=== PATIENT | female | born 1975 | race Caucasian/White ===

== ENCOUNTER 2018-06-16 17:48 | Inpatient (IN) ==
[2018-06-16] MEDS ORDERED: DEXTROSE 50% 25 GM/50 ML SYRINGE IV PRN (21:48)
[2018-06-16] MEDS ORDERED: ONDANSETRON 4 MG/2 ML VIAL IV PRN (21:48)
[2018-06-16] MEDS ORDERED: GLUCAGON 1 MG VIAL IM PRN (21:48)
[2018-06-16] MEDS ORDERED: NITROGLYCERIN SL 0.4 MG TABLET SL PRN (21:55)
[2018-06-16] MEDS ORDERED: ALBUTEROL/IPRATROPIUM 3 ML NEB RESP TX PRN (21:55)
[2018-06-16 22:55] LABS: Albumin 2.9 G/DL (3.4-5.0); Calcium 8.2 MG/DL (8.5-10.1); Osmolality,Calculated 258.2 MOS/KG (273-304); Potassium 3.9 MMOL/L (3.5-5.1); Risk Ratio 3.16; Thyroid Stimulating Hormone 7.12 uIU/ml (0.358-3.74); Total Protein 7.2 G/DL (6.4-8.3); VLDL CHOLESTEROL 22.4 MG/DL
[2018-06-17] MEDS: INSULIN LISPRO 100 UNIT/ML SUBCUT SCH ×4 (00:11→18:07)
[2018-06-17] MEDS: FUROSEMIDE 40 MG/4 ML VIAL IV SCH ×5 (02:10→22:26)
[2018-06-17 02:25] LABS: Basophils # 0.1 10*3/uL (0.0-0.2); Basophils % 0.6 % (0.0-0.8); Eosinophils # 0.1 10*3/uL (0.0-0.87); Eosinophils % 1.5 % (0.00-10.9); Hemoglobin 10.1 GM/DL (12.0-16.0); Immature Granulocytes % 0.6 %; Immature Granulocytes Absolute 0.05 #; Lymphocytes # 1.4 10*3/uL (1.4-4.0); Lymphocytes % 16.3 % (21.3-54.2); Mean Corpuscular Hemoglobin 24 PG (27-34); Mean Corpuscular Volume 81.1 FL (87-102); Mean Platelet Volume 12.5 FL (9.6-12.0); Monocytes # 0.7 10*3/uL (0.11-0.8); Neutrophils # 6.4 10*3/uL (1.4-7.4); Platelet Count 174 T/CUMM (130-400); Red Blood Count 4.29 MC/CUMM (3.8-5.5); Red Cell Distribution Width 18.5 % (9.3-17.3); White Blood Count 8.7 T/CUMM (4-12)
[2018-06-17] MEDS: LEVOTHYROXINE 100 MCG TABLET PO SCH (07:25)
[2018-06-17] MEDS: busPIRone 15 MG TABLET PO SCH ×3 (08:35→22:23)
[2018-06-17] MEDS: GABAPENTIN 300 MG CAPSULE PO SCH ×3 (08:36→22:23)
[2018-06-17] MEDS: ASPIRIN CHEW 81 MG TABLET PO SCH (08:37)
[2018-06-17] MEDS: SPIRONOLACTONE 25 MG TABLET PO SCH (08:37)
[2018-06-17] MEDS: ENOXAPARIN 40 MG/0.4 ML SYRINGE SUBCUT SCH (08:37)
[2018-06-17] MEDS ORDERED: LEVOTHYROXINE 100 MCG TABLET PO SCH (09:00)
[2018-06-17] MEDS ORDERED: QUEtiapine 100 MG TABLET PO SCH (09:00)
[2018-06-17 10:23] LABS: ABG Base Excess 4.8 MMOL/L (-2.5-2.5); ABG HCO3 27.9 MMOL/L (20-26); ABG Oxygen Saturation 47.3 % (95-100); ABG PCO2 53.6 MM HG (35-48); ABG PH 7.372 (7.35-7.45); ABG TCO2 28.8 MMOL/L (23-27)
[2018-06-17 10:25] LABS: ABG PO2 31.3 MM HG (80-95)
[2018-06-17] MEDS: ALBUTEROL 1.25 MG/3 ML NEB RESP TX SCH ×3 (11:03→20:46)
[2018-06-17] MEDS ORDERED: methylPREDNISolone SOD SUC 125 MG/2 ML VIAL IV ONE (11:27)
[2018-06-17] MEDS: LEVOFLOXACIN INJ 750 MG in PREMIX 1 EACH IV SCH (12:17)
[2018-06-17] MEDS ORDERED: ALBUMIN 25% 12.5 GM/50 ML VIAL IV ONE (13:55)
[2018-06-17] MEDS ORDERED: ALBUMIN 25% 12.5 GM in PREMIX 1 EACH IV ONE (14:09)
[2018-06-17] MEDS: traMADol 50 MG TABLET PO SCH ×2 (16:07→22:23)
[2018-06-17 20:17] LABS: Neutrophils,Peritoneal Fluid 6 %
[2018-06-17 20:22] LABS: RBC,Peritoneal Fluid 572 T/CUMM
[2018-06-17] MEDS ORDERED: methylPREDNISolone SOD SUC 125 MG/2 ML VIAL IV SCH (23:30)
[2018-06-18] MEDS: ALBUTEROL 1.25 MG/3 ML NEB RESP TX SCH ×6 (00:49→20:30)
[2018-06-18] MEDS: INSULIN LISPRO 100 UNIT/ML SUBCUT SCH ×4 (01:09→17:09)
[2018-06-18] MEDS: FUROSEMIDE 40 MG/4 ML VIAL IV SCH ×3 (04:43→21:29)
[2018-06-18 05:14] LABS: Hematocrit 33.1 VOL% (35.7-47.0); Immature Granulocytes % 0.6 %; Immature Granulocytes Absolute 0.03 #; Lymphocytes # 0.4 10*3/uL (1.4-4.0); Lymphocytes % 9.1 % (21.3-54.2); Mean Corpuscular HGB Conc 30.2 GM/DL (32-36); Mean Corpuscular Hemoglobin 24 PG (27-34); Mean Corpuscular Volume 79.6 FL (87-102); Mean Platelet Volume 12.4 FL (9.6-12.0); Monocytes # 0.2 10*3/uL (0.11-0.8); Monocytes % 3.7 % (1.7-12.7); Neutrophils # 4.2 10*3/uL (1.4-7.4); Neutrophils % 86.6 % (38.7-73.9); Platelet Count 137 T/CUMM (130-400); Red Blood Count 4.16 MC/CUMM (3.8-5.5); Red Cell Distribution Width 18.2 % (9.3-17.3); White Blood Count 4.8 T/CUMM (4-12)
[2018-06-18 05:41] LABS: Albumin 2.6 G/DL (3.4-5.0); Bilirubin,Total 1.7 MG/DL (0.2-1.0); Calcium 8.7 MG/DL (8.5-10.1); Osmolality,Calculated 273.2 MOS/KG (273-304); Potassium 4.6 MMOL/L (3.5-5.1); Total Protein 6.6 G/DL (6.4-8.3)
[2018-06-18 05:45] LABS: Platelet Estimate Decreased; Polychromasia Few
[2018-06-18] MEDS: LEVOTHYROXINE 100 MCG TABLET PO SCH (06:44)
[2018-06-18] MEDS: ASPIRIN CHEW 81 MG TABLET PO SCH (08:41)
[2018-06-18] MEDS: busPIRone 15 MG TABLET PO SCH ×3 (08:41→21:32)
[2018-06-18] MEDS: GABAPENTIN 300 MG CAPSULE PO SCH ×3 (08:41→21:31)
[2018-06-18] MEDS: ENOXAPARIN 40 MG/0.4 ML SYRINGE SUBCUT SCH (08:41)
[2018-06-18] MEDS: SPIRONOLACTONE 25 MG TABLET PO SCH (08:42)
[2018-06-18] MEDS: traMADol 50 MG TABLET PO SCH ×2 (08:43→21:31)
[2018-06-18] MEDS ORDERED: SKIN HEALING OINT (AQUAPHOR) 50 GM TUBE TOP PRN (10:01)
[2018-06-18] MEDS: predniSONE 20 MG TABLET PO SCH (10:08)
[2018-06-18] MEDS: LEVOFLOXACIN INJ 750 MG in PREMIX 1 EACH IV SCH (10:50)
[2018-06-18] MEDS ORDERED: CALCIUM CARBONATE CHEW 500 MG TABLET PO PRN (16:21)
[2018-06-18] MEDS: SILVER SULFADIAZINE 1% CREAM 25 GM TUBE TOP SCH (16:30)
[2018-06-18] MEDS: PANTOPRAZOLE 40 MG TABLET PO SCH (16:41)
[2018-06-18] MEDS ORDERED: LISINOPRIL 10 MG TABLET PO SCH (21:00)
[2018-06-18] MEDS: QUEtiapine 100 MG TABLET PO SCH (21:30)
[2018-06-19] MEDS: INSULIN LISPRO 100 UNIT/ML SUBCUT SCH ×4 (00:17→17:30)
[2018-06-19] MEDS: ALBUTEROL 1.25 MG/3 ML NEB RESP TX SCH ×7 (00:21→23:26)
[2018-06-19] MEDS: FUROSEMIDE 40 MG/4 ML VIAL IV SCH ×3 (05:18→20:26)
[2018-06-19 06:07] LABS: Calcium 8.7 MG/DL (8.5-10.1); Osmolality,Calculated 282.8 MOS/KG (273-304); Potassium 4.2 MMOL/L (3.5-5.1)
[2018-06-19] MEDS ORDERED: DEXTROSE 50% 25 GM/50 ML VIAL IV PRN (08:04)
[2018-06-19] MEDS ORDERED: GLUCAGON 1 MG VIAL IM PRN (08:04)
[2018-06-19] MEDS ORDERED: PROPOFOL 200 MG/20 ML VIAL IV ONE (08:51)
[2018-06-19] MEDS ORDERED: ETOMIDATE 40 MG/20 ML VIAL IV ONE (08:52)
[2018-06-19] MEDS ORDERED: INSULIN REGULAR 100 UNIT/ML ONE (09:41)
[2018-06-19] MEDS: ASPIRIN CHEW 81 MG TABLET PO SCH (09:58)
[2018-06-19] MEDS: SPIRONOLACTONE 25 MG TABLET PO SCH (09:58)
[2018-06-19] MEDS: LEVOTHYROXINE 100 MCG TABLET PO SCH (09:58)
[2018-06-19] MEDS: busPIRone 15 MG TABLET PO SCH ×3 (09:59→20:27)
[2018-06-19] MEDS: GABAPENTIN 300 MG CAPSULE PO SCH ×3 (09:59→20:34)
[2018-06-19] MEDS: ENOXAPARIN 40 MG/0.4 ML SYRINGE SUBCUT SCH (09:59)
[2018-06-19] MEDS: predniSONE 20 MG TABLET PO SCH (09:59)
[2018-06-19] MEDS: LEVOFLOXACIN 500 MG TABLET PO SCH (09:59)
[2018-06-19] MEDS: LISINOPRIL 5 MG TABLET PO SCH (10:00)
[2018-06-19] MEDS: SILVER SULFADIAZINE 1% CREAM 25 GM TUBE TOP SCH (10:00)
[2018-06-19] MEDS: PANTOPRAZOLE 40 MG TABLET PO SCH (10:00)
[2018-06-19] MEDS: traMADol 50 MG TABLET PO SCH ×2 (10:00→20:27)
[2018-06-19] MEDS: QUEtiapine 100 MG TABLET PO SCH (20:31)
[2018-06-20] MEDS: LISINOPRIL 5 MG TABLET PO SCH ×3 (00:35→20:24)
[2018-06-20] MEDS: INSULIN LISPRO 100 UNIT/ML SUBCUT SCH ×4 (01:00→17:49)
[2018-06-20] MEDS: ALBUTEROL 1.25 MG/3 ML NEB RESP TX SCH ×6 (03:45→23:21)
[2018-06-20 04:35] LABS: Albumin 2.9 G/DL (3.4-5.0); Bilirubin,Total 1.3 MG/DL (0.2-1.0); Calcium 8.4 MG/DL (8.5-10.1); Osmolality,Calculated 286.8 MOS/KG (273-304); Potassium 4.8 MMOL/L (3.5-5.1); Total Protein 6.2 G/DL (6.4-8.3)
[2018-06-20 04:40] LABS: Eosinophils % 0.2 % (0.00-10.9); Hematocrit 32.7 VOL% (35.7-47.0); Hemoglobin 9.6 GM/DL (12.0-16.0); Immature Granulocytes % 0.5 %; Immature Granulocytes Absolute 0.03 #; Lymphocytes # 0.9 10*3/uL (1.4-4.0); Lymphocytes % 13.4 % (21.3-54.2); Mean Corpuscular HGB Conc 29.4 GM/DL (32-36); Mean Corpuscular Hemoglobin 24 PG (27-34); Mean Corpuscular Volume 82.4 FL (87-102); Mean Platelet Volume 12.5 FL (9.6-12.0); Monocytes # 0.5 10*3/uL (0.11-0.8); Monocytes % 7.1 % (1.7-12.7); Neutrophils # 5.3 10*3/uL (1.4-7.4); Neutrophils % 78.8 % (38.7-73.9); Platelet Count 130 T/CUMM (130-400); Red Blood Count 3.97 MC/CUMM (3.8-5.5); Red Cell Distribution Width 18.6 % (9.3-17.3); White Blood Count 6.7 T/CUMM (4-12)
[2018-06-20] MEDS: LEVOTHYROXINE 100 MCG TABLET PO SCH (06:50)
[2018-06-20] MEDS ORDERED: INSULIN GLARGINE 100 UNIT/ML SUBCUT SCH (09:00)
[2018-06-20] MEDS: predniSONE 20 MG TABLET PO SCH (09:05)
[2018-06-20] MEDS: glyBURIDE 2.5 MG TABLET PO SCH (09:05)
[2018-06-20] MEDS: LEVOFLOXACIN 500 MG TABLET PO SCH (09:05)
[2018-06-20] MEDS: GABAPENTIN 300 MG CAPSULE PO SCH ×3 (09:05→20:24)
[2018-06-20] MEDS: traMADol 50 MG TABLET PO SCH ×2 (09:06→20:24)
[2018-06-20] MEDS: SPIRONOLACTONE 25 MG TABLET PO SCH (09:06)
[2018-06-20] MEDS: ASPIRIN CHEW 81 MG TABLET PO SCH (09:06)
[2018-06-20] MEDS: FUROSEMIDE 40 MG/4 ML VIAL IV SCH ×2 (09:07→20:25)
[2018-06-20] MEDS: ENOXAPARIN 40 MG/0.4 ML SYRINGE SUBCUT SCH (09:07)
[2018-06-20] MEDS: PANTOPRAZOLE 40 MG TABLET PO SCH (09:07)
[2018-06-20] MEDS: busPIRone 15 MG TABLET PO SCH ×3 (09:19→20:24)
[2018-06-20] MEDS: SILVER SULFADIAZINE 1% CREAM 25 GM TUBE TOP SCH (09:35)
[2018-06-20] MEDS ORDERED: oxyCODONE/ACETAMINOPHEN 5-325 MG TABLET PO ONE (17:37)
[2018-06-20] MEDS: QUEtiapine 100 MG TABLET PO SCH (20:23)
[2018-06-21] MEDS: INSULIN LISPRO 100 UNIT/ML SUBCUT SCH ×4 (00:05→17:54)
[2018-06-21 04:09] LABS: Basophils % 0.1 % (0.0-0.8); Eosinophils % 0.1 % (0.00-10.9); Hematocrit 32.5 VOL% (35.7-47.0); Hemoglobin 9.7 GM/DL (12.0-16.0); Immature Granulocytes % 0.5 %; Immature Granulocytes Absolute 0.04 #; Lymphocytes # 1.2 10*3/uL (1.4-4.0); Lymphocytes % 15.1 % (21.3-54.2); Mean Corpuscular HGB Conc 29.8 GM/DL (32-36); Mean Corpuscular Hemoglobin 24 PG (27-34); Mean Corpuscular Volume 81.5 FL (87-102); Mean Platelet Volume 12.8 FL (9.6-12.0); Monocytes # 0.7 10*3/uL (0.11-0.8); Monocytes % 8.9 % (1.7-12.7); Neutrophils # 6.1 10*3/uL (1.4-7.4); Neutrophils % 75.3 % (38.7-73.9); Platelet Count 143 T/CUMM (130-400); Red Blood Count 3.99 MC/CUMM (3.8-5.5); Red Cell Distribution Width 18.8 % (9.3-17.3); White Blood Count 8.1 T/CUMM (4-12)
[2018-06-21 04:18] LABS: Albumin 2.8 G/DL (3.4-5.0); Bilirubin,Total 0.9 MG/DL (0.2-1.0); Calcium 8.5 MG/DL (8.5-10.1); Osmolality,Calculated 278.8 MOS/KG (273-304); Potassium 4.6 MMOL/L (3.5-5.1); Total Protein 6.6 G/DL (6.4-8.3)
[2018-06-21] MEDS: ALBUTEROL 1.25 MG/3 ML NEB RESP TX SCH ×5 (04:45→20:04)
[2018-06-21] MEDS ORDERED: guaiFENesin 200 MG/10 ML UDCUP PO PRN (05:54)
[2018-06-21] MEDS: oxyCODONE/ACETAMINOPHEN 5-325 MG TABLET PO PRN ×2 (06:10→14:14)
[2018-06-21] MEDS: LEVOTHYROXINE 100 MCG TABLET PO SCH (06:10)
[2018-06-21] MEDS ORDERED: MAGNESIUM SULF RIDER 2 GM in PREMIX 1 EACH IV ONE ×2 (08:53→13:00)
[2018-06-21] MEDS: predniSONE 20 MG TABLET PO SCH (09:01)
[2018-06-21] MEDS: LEVOFLOXACIN 500 MG TABLET PO SCH (09:02)
[2018-06-21] MEDS: ASPIRIN CHEW 81 MG TABLET PO SCH (09:02)
[2018-06-21] MEDS: busPIRone 15 MG TABLET PO SCH ×3 (09:02→21:03)
[2018-06-21] MEDS: SPIRONOLACTONE 25 MG TABLET PO SCH (09:03)
[2018-06-21] MEDS: GABAPENTIN 300 MG CAPSULE PO SCH ×3 (09:03→21:04)
[2018-06-21] MEDS: PANTOPRAZOLE 40 MG TABLET PO SCH (09:03)
[2018-06-21] MEDS: LISINOPRIL 5 MG TABLET PO SCH ×2 (09:03→21:04)
[2018-06-21] MEDS: traMADol 50 MG TABLET PO SCH ×2 (09:03→21:03)
[2018-06-21] MEDS: SILVER SULFADIAZINE 1% CREAM 25 GM TUBE TOP SCH (09:04)
[2018-06-21] MEDS: ENOXAPARIN 40 MG/0.4 ML SYRINGE SUBCUT SCH (09:04)
[2018-06-21] MEDS: FUROSEMIDE 40 MG/4 ML VIAL IV SCH ×2 (09:05→21:01)
[2018-06-21] MEDS: glyBURIDE 2.5 MG TABLET PO SCH (09:05)
[2018-06-21] MEDS: INSULIN GLARGINE 100 UNIT/ML SUBCUT SCH (09:53)
[2018-06-21] MEDS: glyBURIDE 5 MG TABLET PO SCH (17:54)
[2018-06-21] MEDS: QUEtiapine 100 MG TABLET PO SCH (21:03)
[2018-06-22] MEDS: INSULIN LISPRO 100 UNIT/ML SUBCUT SCH ×4 (00:15→17:08)
[2018-06-22] MEDS: ALBUTEROL 1.25 MG/3 ML NEB RESP TX SCH ×7 (00:28→23:11)
[2018-06-22] MEDS: oxyCODONE/ACETAMINOPHEN 5-325 MG TABLET PO PRN (04:49)
[2018-06-22 05:01] LABS: Eosinophils # 0.1 10*3/uL (0.0-0.87); Eosinophils % 1.3 % (0.00-10.9); Hematocrit 33.8 VOL% (35.7-47.0); Hemoglobin 9.9 GM/DL (12.0-16.0); Immature Granulocytes % 0.3 %; Immature Granulocytes Absolute 0.02 #; Lymphocytes # 1.4 10*3/uL (1.4-4.0); Lymphocytes % 23.2 % (21.3-54.2); Mean Corpuscular HGB Conc 29.3 GM/DL (32-36); Mean Corpuscular Hemoglobin 24 PG (27-34); Mean Corpuscular Volume 81.6 FL (87-102); Mean Platelet Volume 12.3 FL (9.6-12.0); Monocytes # 0.6 10*3/uL (0.11-0.8); Monocytes % 10.1 % (1.7-12.7); Neutrophils # 4.1 10*3/uL (1.4-7.4); Neutrophils % 65.1 % (38.7-73.9); Platelet Count 130 T/CUMM (130-400); Red Blood Count 4.14 MC/CUMM (3.8-5.5); Red Cell Distribution Width 18.7 % (9.3-17.3); White Blood Count 6.2 T/CUMM (4-12)
[2018-06-22 05:06] LABS: Calcium 8.8 MG/DL (8.5-10.1); Osmolality,Calculated 276.4 MOS/KG (273-304); Potassium 4.3 MMOL/L (3.5-5.1)
[2018-06-22 05:09] LABS: Albumin 3.1 G/DL (3.4-5.0); Bilirubin,Total 1.3 MG/DL (0.2-1.0); Calcium 8.7 MG/DL (8.5-10.1); Osmolality,Calculated 277.4 MOS/KG (273-304); Potassium 4.2 MMOL/L (3.5-5.1); Total Protein 6.4 G/DL (6.4-8.3)
[2018-06-22] MEDS: LEVOTHYROXINE 100 MCG TABLET PO SCH (06:20)
[2018-06-22] MEDS: glyBURIDE 5 MG TABLET PO SCH ×2 (09:16→17:07)
[2018-06-22] MEDS: predniSONE 20 MG TABLET PO SCH (09:16)
[2018-06-22] MEDS: ASPIRIN CHEW 81 MG TABLET PO SCH (09:16)
[2018-06-22] MEDS: SPIRONOLACTONE 25 MG TABLET PO SCH (09:16)
[2018-06-22] MEDS: LISINOPRIL 5 MG TABLET PO SCH ×2 (09:16→22:11)
[2018-06-22] MEDS: PANTOPRAZOLE 40 MG TABLET PO SCH (09:16)
[2018-06-22] MEDS: GABAPENTIN 300 MG CAPSULE PO SCH ×3 (09:16→22:11)
[2018-06-22] MEDS: INSULIN GLARGINE 100 UNIT/ML SUBCUT SCH (09:17)
[2018-06-22] MEDS: traMADol 50 MG TABLET PO SCH ×2 (09:17→22:12)
[2018-06-22] MEDS: ENOXAPARIN 40 MG/0.4 ML SYRINGE SUBCUT SCH (09:17)
[2018-06-22] MEDS: FUROSEMIDE 40 MG/4 ML VIAL IV SCH (09:18)
[2018-06-22] MEDS: SILVER SULFADIAZINE 1% CREAM 25 GM TUBE TOP SCH (09:25)
[2018-06-22] MEDS: busPIRone 15 MG TABLET PO SCH ×3 (09:26→22:11)
[2018-06-22] MEDS ORDERED: ZINC OXIDE PASTE 113 GM TUBE TOP PRN (10:08)
[2018-06-22] MEDS ORDERED: POTASSIUM CHLORIDE RIDER 10 MEQ in PREMIX 1 EACH IV PRN (14:43)
[2018-06-22] MEDS ORDERED: MAGNESIUM SULF RIDER 2 GM in PREMIX 1 EACH IV PRN (14:43)
[2018-06-22] MEDS ORDERED: INSULIN GLARGINE 100 UNIT/ML SUBCUT SCH (15:53)
[2018-06-22] MEDS ORDERED: FUROSEMIDE 40 MG TABLET PO SCH (16:00)
[2018-06-22] MEDS: SULFAMETHOX/TRIMETHOPRIM 800-160 MG TABLET PO SCH (22:11)
[2018-06-22] MEDS: QUEtiapine 100 MG TABLET PO SCH (22:12)
[2018-06-23] MEDS: INSULIN LISPRO 100 UNIT/ML SUBCUT SCH ×4 (01:43→18:01)
[2018-06-23] MEDS: ALBUTEROL 1.25 MG/3 ML NEB RESP TX SCH ×5 (03:01→19:56)
[2018-06-23 05:03] LABS: Basophils % 0.1 % (0.0-0.8); Eosinophils # 0.1 10*3/uL (0.0-0.87); Eosinophils % 0.9 % (0.00-10.9); Hematocrit 31.5 VOL% (35.7-47.0); Hemoglobin 9.4 GM/DL (12.0-16.0); Immature Granulocytes % 0.4 %; Immature Granulocytes Absolute 0.03 #; Lymphocytes # 1.4 10*3/uL (1.4-4.0); Lymphocytes % 19.9 % (21.3-54.2); Mean Corpuscular HGB Conc 29.8 GM/DL (32-36); Mean Corpuscular Hemoglobin 24 PG (27-34); Mean Corpuscular Volume 80.4 FL (87-102); Mean Platelet Volume 12.5 FL (9.6-12.0); Monocytes # 0.6 10*3/uL (0.11-0.8); Monocytes % 8.4 % (1.7-12.7); Neutrophils # 4.8 10*3/uL (1.4-7.4); Neutrophils % 70.3 % (38.7-73.9); Platelet Count 132 T/CUMM (130-400); Red Blood Count 3.92 MC/CUMM (3.8-5.5); Red Cell Distribution Width 18.9 % (9.3-17.3); White Blood Count 6.8 T/CUMM (4-12)
[2018-06-23 05:18] LABS: Calcium 8.9 MG/DL (8.5-10.1); Osmolality,Calculated 280.5 MOS/KG (273-304); Potassium 4.2 MMOL/L (3.5-5.1)
[2018-06-23] MEDS: LEVOTHYROXINE 100 MCG TABLET PO SCH (06:22)
[2018-06-23] MEDS ORDERED: VANCOMYCIN INJ 1,000 MG in SODIUM CHLORIDE 0.9% 250 ML IV SCH (07:00)
[2018-06-23] MEDS ORDERED: PIPERACILLIN/TAZOBACTAM 3,375 MG in SODIUM CHLORIDE 0.9% 100 ML IV SCH (07:00)
[2018-06-23] MEDS: NICOTINE 7 MG/24 HR PATCH TRANSDERM SCH (08:40)
[2018-06-23] MEDS: traMADol 50 MG TABLET PO SCH ×2 (08:41→22:26)
[2018-06-23] MEDS: SULFAMETHOX/TRIMETHOPRIM 800-160 MG TABLET PO SCH (08:41)
[2018-06-23] MEDS: ASPIRIN CHEW 81 MG TABLET PO SCH (08:41)
[2018-06-23] MEDS: GABAPENTIN 300 MG CAPSULE PO SCH ×3 (08:42→22:25)
[2018-06-23] MEDS: predniSONE 10 MG TABLET PO SCH (08:42)
[2018-06-23] MEDS: PANTOPRAZOLE 40 MG TABLET PO SCH (08:42)
[2018-06-23] MEDS: SILVER SULFADIAZINE 1% CREAM 25 GM TUBE TOP SCH (08:43)
[2018-06-23] MEDS ORDERED: SODIUM CHLORIDE 0.45% 1,000 ML IV SCH (09:00)
[2018-06-23] MEDS ORDERED: diphenhydrAMINE CAP 25 MG CAPSULE PO ONE (11:00)
[2018-06-23] MEDS ORDERED: DIAZEPAM 5 MG TABLET PO ONE (11:00)
[2018-06-23] MEDS: glyBURIDE 5 MG TABLET PO SCH ×2 (11:08→17:28)
[2018-06-23] MEDS: CLINDAMYCIN INJ 900 MG in PREMIX 1 EACH IV SCH ×2 (11:08→17:29)
[2018-06-23] MEDS: ENOXAPARIN 40 MG/0.4 ML SYRINGE SUBCUT SCH (11:12)
[2018-06-23] MEDS: busPIRone 15 MG TABLET PO SCH ×3 (11:14→22:24)
[2018-06-23] MEDS ORDERED: VERAPAMIL 5 MG/2 ML VIAL ONE (12:06)
[2018-06-23] MEDS ORDERED: LIDOCAINE 1% 20 ML VIAL ONE (12:06)
[2018-06-23] MEDS ORDERED: NITROGLYCERIN DRIP 0 MG/0 ML BOTTLE IV ONE (12:06)
[2018-06-23] MEDS ORDERED: HYDROmorphone 2 MG/1 ML VIAL ONE ×2 (12:56→13:17)
[2018-06-23] MEDS ORDERED: MIDAZOLAM 2 MG/2 ML VIAL ONE ×2 (12:56→13:17)
[2018-06-23] MEDS ORDERED: SODIUM CHLORIDE 0.9% 500 ML IV ONE (15:59)
[2018-06-23] MEDS ORDERED: INSULIN GLARGINE 100 UNIT/ML SUBCUT SCH (21:00)
[2018-06-23] MEDS: guaiFENesin/DM ER 600-30 MG TABLET PO SCH (22:24)
[2018-06-23] MEDS: QUEtiapine 100 MG TABLET PO SCH (22:25)
[2018-06-24] MEDS: INSULIN LISPRO 100 UNIT/ML SUBCUT SCH ×4 (00:36→18:57)
[2018-06-24] MEDS: ALBUTEROL 1.25 MG/3 ML NEB RESP TX SCH ×7 (00:42→23:43)
[2018-06-24] MEDS: CLINDAMYCIN INJ 900 MG in PREMIX 1 EACH IV SCH ×3 (01:41→16:36)
[2018-06-24 05:24] LABS: Basophils % 0.3 % (0.0-0.8); Eosinophils # 0.1 10*3/uL (0.0-0.87); Hematocrit 31.6 VOL% (35.7-47.0); Hemoglobin 9.3 GM/DL (12.0-16.0); Immature Granulocytes % 0.4 %; Immature Granulocytes Absolute 0.03 #; Lymphocytes # 1.4 10*3/uL (1.4-4.0); Lymphocytes % 17.9 % (21.3-54.2); Mean Corpuscular HGB Conc 29.4 GM/DL (32-36); Mean Corpuscular Hemoglobin 24 PG (27-34); Mean Corpuscular Volume 81.7 FL (87-102); Mean Platelet Volume 13.1 FL (9.6-12.0); Monocytes # 0.6 10*3/uL (0.11-0.8); Monocytes % 7.8 % (1.7-12.7); Neutrophils # 5.7 10*3/uL (1.4-7.4); Neutrophils % 72.6 % (38.7-73.9); Platelet Count 131 T/CUMM (130-400); Red Blood Count 3.87 MC/CUMM (3.8-5.5); Red Cell Distribution Width 19.1 % (9.3-17.3); White Blood Count 7.8 T/CUMM (4-12)
[2018-06-24 05:37] LABS: Calcium 8.6 MG/DL (8.5-10.1); Osmolality,Calculated 274.5 MOS/KG (273-304); Potassium 4.4 MMOL/L (3.5-5.1)
[2018-06-24] MEDS: LEVOTHYROXINE 100 MCG TABLET PO SCH (06:48)
[2018-06-24] MEDS ORDERED: SODIUM CHLORIDE 0.9% 1,000 ML IV SCH (08:00)
[2018-06-24] MEDS: GABAPENTIN 300 MG CAPSULE PO SCH ×3 (09:11→21:50)
[2018-06-24] MEDS: guaiFENesin/DM ER 600-30 MG TABLET PO SCH ×2 (09:11→21:56)
[2018-06-24] MEDS: PANTOPRAZOLE 40 MG TABLET PO SCH (09:11)
[2018-06-24] MEDS: traMADol 50 MG TABLET PO SCH ×2 (09:12→21:50)
[2018-06-24] MEDS: glyBURIDE 5 MG TABLET PO SCH ×2 (09:13→16:31)
[2018-06-24] MEDS: NICOTINE 7 MG/24 HR PATCH TRANSDERM SCH (09:14)
[2018-06-24] MEDS: busPIRone 15 MG TABLET PO SCH ×3 (09:14→21:50)
[2018-06-24] MEDS: predniSONE 10 MG TABLET PO SCH (09:14)
[2018-06-24] MEDS: INSULIN GLARGINE 100 UNIT/ML SUBCUT SCH ×2 (09:16→21:57)
[2018-06-24] MEDS: ENOXAPARIN 40 MG/0.4 ML SYRINGE SUBCUT SCH (09:18)
[2018-06-24] MEDS: oxyCODONE/ACETAMINOPHEN 5-325 MG TABLET PO PRN (11:07)
[2018-06-24] MEDS: SILVER SULFADIAZINE 1% CREAM 25 GM TUBE TOP SCH (13:52)
[2018-06-24] MEDS: FUROSEMIDE 40 MG/4 ML VIAL IV SCH (16:36)
[2018-06-24] MEDS: QUEtiapine 100 MG TABLET PO SCH (21:50)
[2018-06-25] MEDS: CLINDAMYCIN INJ 900 MG in PREMIX 1 EACH IV SCH ×3 (01:25→16:48)
[2018-06-25] MEDS: ALBUTEROL 1.25 MG/3 ML NEB RESP TX SCH ×6 (03:56→23:55)
[2018-06-25 05:11] LABS: Basophils % 0.1 % (0.0-0.8); Eosinophils # 0.1 10*3/uL (0.0-0.87); Eosinophils % 0.9 % (0.00-10.9); Hematocrit 30.3 VOL% (35.7-47.0); Immature Granulocytes % 0.6 %; Immature Granulocytes Absolute 0.04 #; Lymphocytes # 1.4 10*3/uL (1.4-4.0); Lymphocytes % 20.4 % (21.3-54.2); Mean Corpuscular HGB Conc 29.7 GM/DL (32-36); Mean Corpuscular Hemoglobin 24 PG (27-34); Mean Corpuscular Volume 80.8 FL (87-102); Mean Platelet Volume 12.6 FL (9.6-12.0); Monocytes # 0.6 10*3/uL (0.11-0.8); Monocytes % 8.2 % (1.7-12.7); Neutrophils # 4.7 10*3/uL (1.4-7.4); Neutrophils % 69.8 % (38.7-73.9); Platelet Count 130 T/CUMM (130-400); Red Blood Count 3.75 MC/CUMM (3.8-5.5); White Blood Count 6.7 T/CUMM (4-12)
[2018-06-25 05:41] LABS: Calcium 8.5 MG/DL (8.5-10.1); Osmolality,Calculated 269.5 MOS/KG (273-304); Potassium 4.1 MMOL/L (3.5-5.1)
[2018-06-25 05:42] LABS: Calcium 8.5 MG/DL (8.5-10.1); Osmolality,Calculated 269.5 MOS/KG (273-304); Potassium 4.2 MMOL/L (3.5-5.1)
[2018-06-25] MEDS: LEVOTHYROXINE 100 MCG TABLET PO SCH (06:22)
[2018-06-25] MEDS: INSULIN LISPRO 100 UNIT/ML SUBCUT SCH ×4 (06:32→17:32)
[2018-06-25] MEDS: glyBURIDE 5 MG TABLET PO SCH ×2 (09:25→16:43)
[2018-06-25] MEDS: predniSONE 10 MG TABLET PO SCH (09:25)
[2018-06-25] MEDS: guaiFENesin/DM ER 600-30 MG TABLET PO SCH ×2 (09:25→21:38)
[2018-06-25] MEDS: INSULIN GLARGINE 100 UNIT/ML SUBCUT SCH ×2 (09:25→21:39)
[2018-06-25] MEDS: ENOXAPARIN 40 MG/0.4 ML SYRINGE SUBCUT SCH (09:25)
[2018-06-25] MEDS: PANTOPRAZOLE 40 MG TABLET PO SCH (09:25)
[2018-06-25] MEDS: GABAPENTIN 300 MG CAPSULE PO SCH ×3 (09:26→21:39)
[2018-06-25] MEDS: traMADol 50 MG TABLET PO SCH ×2 (09:26→21:39)
[2018-06-25] MEDS: NICOTINE 7 MG/24 HR PATCH TRANSDERM SCH (09:26)
[2018-06-25] MEDS: busPIRone 15 MG TABLET PO SCH ×3 (09:27→21:38)
[2018-06-25] MEDS: SILVER SULFADIAZINE 1% CREAM 25 GM TUBE TOP SCH (09:27)
[2018-06-25] MEDS: FUROSEMIDE 40 MG/4 ML VIAL IV SCH ×2 (09:27→16:43)
[2018-06-25] MEDS: QUEtiapine 100 MG TABLET PO SCH (21:39)
[2018-06-26] MEDS: CLINDAMYCIN INJ 900 MG in PREMIX 1 EACH IV SCH ×3 (02:25→16:59)
[2018-06-26] MEDS: ALBUTEROL 1.25 MG/3 ML NEB RESP TX SCH ×5 (03:30→20:33)
[2018-06-26 05:24] LABS: Basophils % 0.1 % (0.0-0.8); Eosinophils # 0.1 10*3/uL (0.0-0.87); Eosinophils % 1.1 % (0.00-10.9); Immature Granulocytes % 0.7 %; Immature Granulocytes Absolute 0.05 #; Lymphocytes # 1.4 10*3/uL (1.4-4.0); Lymphocytes % 19.4 % (21.3-54.2); Mean Corpuscular Hemoglobin 24 PG (27-34); Mean Corpuscular Volume 79.8 FL (87-102); Mean Platelet Volume 12.7 FL (9.6-12.0); Monocytes # 0.7 10*3/uL (0.11-0.8); Monocytes % 10.3 % (1.7-12.7); Neutrophils # 4.9 10*3/uL (1.4-7.4); Neutrophils % 68.4 % (38.7-73.9); Platelet Count 123 T/CUMM (130-400); Red Blood Count 3.76 MC/CUMM (3.8-5.5); White Blood Count 7.1 T/CUMM (4-12)
[2018-06-26 05:42] LABS: Osmolality,Calculated 269.5 MOS/KG (273-304); Potassium 3.8 MMOL/L (3.5-5.1)
[2018-06-26] MEDS: INSULIN LISPRO 100 UNIT/ML SUBCUT SCH ×4 (09:03→18:25)
[2018-06-26] MEDS: glyBURIDE 5 MG TABLET PO SCH ×2 (09:04→16:59)
[2018-06-26] MEDS: LEVOTHYROXINE 100 MCG TABLET PO SCH (09:04)
[2018-06-26] MEDS: busPIRone 15 MG TABLET PO SCH ×3 (09:04→22:08)
[2018-06-26] MEDS: traMADol 50 MG TABLET PO SCH ×2 (09:05→21:06)
[2018-06-26] MEDS: PANTOPRAZOLE 40 MG TABLET PO SCH (09:05)
[2018-06-26] MEDS: predniSONE 10 MG TABLET PO SCH (09:05)
[2018-06-26] MEDS: guaiFENesin/DM ER 600-30 MG TABLET PO SCH ×2 (09:05→22:08)
[2018-06-26] MEDS: ENOXAPARIN 40 MG/0.4 ML SYRINGE SUBCUT SCH (09:06)
[2018-06-26] MEDS: NICOTINE 7 MG/24 HR PATCH TRANSDERM SCH (09:06)
[2018-06-26] MEDS: FUROSEMIDE 40 MG/4 ML VIAL IV SCH (09:07)
[2018-06-26] MEDS: SILVER SULFADIAZINE 1% CREAM 25 GM TUBE TOP SCH (09:08)
[2018-06-26] MEDS: INSULIN GLARGINE 100 UNIT/ML SUBCUT SCH ×2 (09:08→21:10)
[2018-06-26] MEDS: GABAPENTIN 300 MG CAPSULE PO SCH ×3 (09:17→21:06)
[2018-06-26] MEDS: FUROSEMIDE 80 MG TABLET PO SCH (16:59)
[2018-06-26] MEDS: SPIRONOLACTONE 25 MG TABLET PO SCH ×2 (16:59→21:06)
[2018-06-26] MEDS: QUEtiapine 100 MG TABLET PO SCH (21:06)
[2018-06-26] MEDS: oxyCODONE/ACETAMINOPHEN 5-325 MG TABLET PO PRN (23:45)
[2018-06-27] MEDS: INSULIN LISPRO 100 UNIT/ML SUBCUT SCH ×5 (00:17→23:19)
[2018-06-27] MEDS: ALBUTEROL 1.25 MG/3 ML NEB RESP TX SCH ×7 (01:03→23:54)
[2018-06-27] MEDS: CLINDAMYCIN INJ 900 MG in PREMIX 1 EACH IV SCH ×3 (02:29→17:09)
[2018-06-27 04:56] LABS: Basophils % 0.3 % (0.0-0.8); Eosinophils # 0.1 10*3/uL (0.0-0.87); Eosinophils % 0.9 % (0.00-10.9); Hematocrit 30.1 VOL% (35.7-47.0); Hemoglobin 8.8 GM/DL (12.0-16.0); Immature Granulocytes % 0.7 %; Immature Granulocytes Absolute 0.04 #; Lymphocytes # 1.1 10*3/uL (1.4-4.0); Lymphocytes % 19.5 % (21.3-54.2); Mean Corpuscular HGB Conc 29.2 GM/DL (32-36); Mean Corpuscular Hemoglobin 24 PG (27-34); Mean Corpuscular Volume 80.7 FL (87-102); Mean Platelet Volume 12.7 FL (9.6-12.0); Monocytes # 0.5 10*3/uL (0.11-0.8); Monocytes % 9.1 % (1.7-12.7); Neutrophils # 4.1 10*3/uL (1.4-7.4); Neutrophils % 69.5 % (38.7-73.9); Platelet Count 125 T/CUMM (130-400); Red Blood Count 3.73 MC/CUMM (3.8-5.5); Red Cell Distribution Width 19.5 % (9.3-17.3); White Blood Count 5.9 T/CUMM (4-12)
[2018-06-27 05:18] LABS: Calcium 8.3 MG/DL (8.5-10.1); Osmolality,Calculated 270.4 MOS/KG (273-304); Potassium 4.1 MMOL/L (3.5-5.1)
[2018-06-27] MEDS ORDERED: MAGNESIUM CITRATE 300 ML BOTTLE PO PRN (08:04)
[2018-06-27] MEDS: LEVOTHYROXINE 100 MCG TABLET PO SCH (09:11)
[2018-06-27] MEDS: glyBURIDE 5 MG TABLET PO SCH ×2 (09:14→17:09)
[2018-06-27] MEDS: predniSONE 10 MG TABLET PO SCH (09:14)
[2018-06-27] MEDS: busPIRone 15 MG TABLET PO SCH ×3 (09:14→20:07)
[2018-06-27] MEDS: FUROSEMIDE 80 MG TABLET PO SCH ×2 (09:14→15:41)
[2018-06-27] MEDS: SPIRONOLACTONE 25 MG TABLET PO SCH ×4 (09:14→20:07)
[2018-06-27] MEDS: PANTOPRAZOLE 40 MG TABLET PO SCH (09:15)
[2018-06-27] MEDS: traMADol 50 MG TABLET PO SCH ×2 (09:15→20:08)
[2018-06-27] MEDS: GABAPENTIN 300 MG CAPSULE PO SCH ×3 (09:15→20:08)
[2018-06-27] MEDS: guaiFENesin/DM ER 600-30 MG TABLET PO SCH ×2 (09:15→20:08)
[2018-06-27] MEDS: NICOTINE 7 MG/24 HR PATCH TRANSDERM SCH (09:16)
[2018-06-27] MEDS: SILVER SULFADIAZINE 1% CREAM 25 GM TUBE TOP SCH (09:16)
[2018-06-27] MEDS: ENOXAPARIN 40 MG/0.4 ML SYRINGE SUBCUT SCH (09:17)
[2018-06-27] MEDS: INSULIN GLARGINE 100 UNIT/ML SUBCUT SCH ×2 (09:17→20:07)
[2018-06-27] MEDS: POLYETHYLENE GLYCOL POWDER 17 GM PACK PO SCH (09:31)
[2018-06-27] MEDS: QUEtiapine 100 MG TABLET PO SCH (20:08)
[2018-06-28] MEDS: oxyCODONE/ACETAMINOPHEN 5-325 MG TABLET PO PRN ×2 (01:23→16:11)
[2018-06-28] MEDS: CLINDAMYCIN INJ 900 MG in PREMIX 1 EACH IV SCH ×3 (02:29→16:07)
[2018-06-28] MEDS: ALBUTEROL 1.25 MG/3 ML NEB RESP TX SCH ×5 (03:01→19:51)
[2018-06-28 04:40] LABS: Basophils % 0.3 % (0.0-0.8); Eosinophils % 0.7 % (0.00-10.9); Hematocrit 30.3 VOL% (35.7-47.0); Hemoglobin 8.9 GM/DL (12.0-16.0); Immature Granulocytes % 0.8 %; Immature Granulocytes Absolute 0.05 #; Lymphocytes # 1.1 10*3/uL (1.4-4.0); Lymphocytes % 17.3 % (21.3-54.2); Mean Corpuscular HGB Conc 29.4 GM/DL (32-36); Mean Corpuscular Hemoglobin 24 PG (27-34); Mean Corpuscular Volume 82.1 FL (87-102); Mean Platelet Volume 12.7 FL (9.6-12.0); Monocytes # 0.5 10*3/uL (0.11-0.8); Monocytes % 8.8 % (1.7-12.7); Neutrophils # 4.4 10*3/uL (1.4-7.4); Neutrophils % 72.1 % (38.7-73.9); Platelet Count 120 T/CUMM (130-400); Red Blood Count 3.69 MC/CUMM (3.8-5.5); Red Cell Distribution Width 19.5 % (9.3-17.3); White Blood Count 6.1 T/CUMM (4-12)
[2018-06-28 04:57] LABS: Calcium 8.2 MG/DL (8.5-10.1); Osmolality,Calculated 273.2 MOS/KG (273-304); Potassium 3.5 MMOL/L (3.5-5.1)
[2018-06-28] MEDS: LEVOTHYROXINE 100 MCG TABLET PO SCH (06:25)
[2018-06-28] MEDS: INSULIN LISPRO 100 UNIT/ML SUBCUT SCH ×4 (06:25→23:51)
[2018-06-28 06:53] LABS: Elliptocytes Few; Hypochromasia 2+; Microcytosis 1+; Platelet Estimate Adequate; Polychromasia Slight
[2018-06-28] MEDS: SILVER SULFADIAZINE 1% CREAM 25 GM TUBE TOP SCH (09:13)
[2018-06-28] MEDS: NICOTINE 7 MG/24 HR PATCH TRANSDERM SCH (09:14)
[2018-06-28] MEDS: INSULIN GLARGINE 100 UNIT/ML SUBCUT SCH ×2 (09:15→21:05)
[2018-06-28] MEDS: predniSONE 10 MG TABLET PO SCH (09:16)
[2018-06-28] MEDS: ENOXAPARIN 40 MG/0.4 ML SYRINGE SUBCUT SCH (09:16)
[2018-06-28] MEDS: guaiFENesin/DM ER 600-30 MG TABLET PO SCH ×2 (09:16→21:05)
[2018-06-28] MEDS: PANTOPRAZOLE 40 MG TABLET PO SCH (09:17)
[2018-06-28] MEDS: GABAPENTIN 300 MG CAPSULE PO SCH ×3 (09:17→21:05)
[2018-06-28] MEDS: glyBURIDE 5 MG TABLET PO SCH ×2 (09:17→16:08)
[2018-06-28] MEDS: busPIRone 15 MG TABLET PO SCH ×3 (09:17→21:05)
[2018-06-28] MEDS: FUROSEMIDE 80 MG TABLET PO SCH ×2 (09:17→15:19)
[2018-06-28] MEDS: SPIRONOLACTONE 25 MG TABLET PO SCH ×4 (09:17→21:05)
[2018-06-28] MEDS: traMADol 50 MG TABLET PO SCH ×2 (09:17→21:05)
[2018-06-28] MEDS: POLYETHYLENE GLYCOL POWDER 17 GM PACK PO SCH (09:18)
[2018-06-28] MEDS: QUEtiapine 100 MG TABLET PO SCH (21:05)
[2018-06-29] MEDS: ALBUTEROL 1.25 MG/3 ML NEB RESP TX SCH ×6 (00:45→19:08)
[2018-06-29] MEDS: CLINDAMYCIN INJ 900 MG in PREMIX 1 EACH IV SCH (03:50)
[2018-06-29 05:37] LABS: Basophils % 0.3 % (0.0-0.8); Eosinophils # 0.1 10*3/uL (0.0-0.87); Hematocrit 29.5 VOL% (35.7-47.0); Hemoglobin 8.6 GM/DL (12.0-16.0); Immature Granulocytes % 0.7 %; Immature Granulocytes Absolute 0.04 #; Lymphocytes % 17.3 % (21.3-54.2); Mean Corpuscular HGB Conc 29.2 GM/DL (32-36); Mean Corpuscular Hemoglobin 24 PG (27-34); Mean Corpuscular Volume 81.7 FL (87-102); Mean Platelet Volume 12.2 FL (9.6-12.0); Monocytes # 0.5 10*3/uL (0.11-0.8); Neutrophils # 4.3 10*3/uL (1.4-7.4); Neutrophils % 72.7 % (38.7-73.9); Platelet Count 111 T/CUMM (130-400); Red Blood Count 3.61 MC/CUMM (3.8-5.5); Red Cell Distribution Width 19.7 % (9.3-17.3); White Blood Count 5.9 T/CUMM (4-12)
[2018-06-29 05:52] LABS: Calcium 8.3 MG/DL (8.5-10.1); Osmolality,Calculated 274.4 MOS/KG (273-304); Potassium 3.8 MMOL/L (3.5-5.1)
[2018-06-29] MEDS: INSULIN LISPRO 100 UNIT/ML SUBCUT SCH ×3 (06:46→17:40)
[2018-06-29] MEDS: LEVOTHYROXINE 100 MCG TABLET PO SCH (06:46)
[2018-06-29] MEDS ORDERED: VANCOMYCIN INJ 1,000 MG in SODIUM CHLORIDE 0.9% 250 ML IV SCH (08:00)
[2018-06-29] MEDS: INSULIN GLARGINE 100 UNIT/ML SUBCUT SCH ×2 (09:41→22:40)
[2018-06-29] MEDS: PANTOPRAZOLE 40 MG TABLET PO SCH (09:42)
[2018-06-29] MEDS: busPIRone 15 MG TABLET PO SCH ×3 (09:42→22:08)
[2018-06-29] MEDS: SPIRONOLACTONE 25 MG TABLET PO SCH ×4 (09:42→22:08)
[2018-06-29] MEDS: predniSONE 10 MG TABLET PO SCH (09:42)
[2018-06-29] MEDS: ENOXAPARIN 40 MG/0.4 ML SYRINGE SUBCUT SCH (09:42)
[2018-06-29] MEDS: PIPERACILLIN/TAZOBACTAM 3,375 MG in SODIUM CHLORIDE 0.9% 100 ML IV SCH ×2 (09:43→17:39)
[2018-06-29] MEDS: FUROSEMIDE 80 MG TABLET PO SCH ×2 (09:43→15:20)
[2018-06-29] MEDS: traMADol 50 MG TABLET PO SCH ×2 (09:43→22:09)
[2018-06-29] MEDS: glyBURIDE 5 MG TABLET PO SCH ×2 (09:43→17:39)
[2018-06-29] MEDS: GABAPENTIN 300 MG CAPSULE PO SCH ×3 (09:43→22:08)
[2018-06-29] MEDS: guaiFENesin/DM ER 600-30 MG TABLET PO SCH ×2 (09:43→22:07)
[2018-06-29] MEDS ORDERED: MAGNESIUM SULF RIDER 4 GM in PREMIX 1 EACH IV PRN (10:41)
[2018-06-29] MEDS ORDERED: MAGNESIUM SULF RIDER 2 GM in PREMIX 1 EACH IV PRN (10:41)
[2018-06-29] MEDS: SULFAMETHOX/TRIMETHOPRIM 800-160 MG TABLET PO SCH ×2 (11:19→22:07)
[2018-06-29] MEDS: SILVER SULFADIAZINE 1% CREAM 25 GM TUBE TOP SCH (11:20)
[2018-06-29] MEDS: POLYETHYLENE GLYCOL POWDER 17 GM PACK PO SCH (12:01)
[2018-06-29] MEDS: NICOTINE 7 MG/24 HR PATCH TRANSDERM SCH (12:01)
[2018-06-29] MEDS: VANCOMYCIN INJ 1,750 MG in SODIUM CHLORIDE 0.9% 500 ML IV SCH ×2 (13:29→22:11)
[2018-06-29] MEDS: oxyCODONE/ACETAMINOPHEN 5-325 MG TABLET PO PRN (15:19)
[2018-06-29] MEDS: ROSUVASTATIN 20 MG TABLET PO SCH (22:07)
[2018-06-29] MEDS: QUEtiapine 100 MG TABLET PO SCH (22:08)
[2018-06-30] MEDS: ALBUTEROL 1.25 MG/3 ML NEB RESP TX SCH ×7 (00:10→23:25)
[2018-06-30] MEDS: PIPERACILLIN/TAZOBACTAM 3,375 MG in SODIUM CHLORIDE 0.9% 100 ML IV SCH ×2 (00:15→14:25)
[2018-06-30] MEDS: LEVOTHYROXINE 100 MCG TABLET PO SCH (05:40)
[2018-06-30 05:44] LABS: Calcium 8.3 MG/DL (8.5-10.1); Potassium 3.8 MMOL/L (3.5-5.1)
[2018-06-30 05:45] LABS: Calcium 8.4 MG/DL (8.5-10.1); Osmolality,Calculated 274.1 MOS/KG (273-304); Potassium 3.7 MMOL/L (3.5-5.1)
[2018-06-30 06:16] LABS: Basophils % 0.3 % (0.0-0.8); Eosinophils # 0.1 10*3/uL (0.0-0.87); Eosinophils % 1.2 % (0.00-10.9); Hematocrit 31.6 VOL% (35.7-47.0); Immature Granulocytes % 0.7 %; Immature Granulocytes Absolute 0.05 #; Lymphocytes # 1.2 10*3/uL (1.4-4.0); Lymphocytes % 15.9 % (21.3-54.2); Mean Corpuscular HGB Conc 29.1 GM/DL (32-36); Mean Corpuscular Hemoglobin 24 PG (27-34); Mean Corpuscular Volume 82.7 FL (87-102); Mean Platelet Volume 13.7 FL (9.6-12.0); Monocytes # 0.6 10*3/uL (0.11-0.8); Monocytes % 8.1 % (1.7-12.7); Neutrophils # 5.4 10*3/uL (1.4-7.4); Neutrophils % 73.8 % (38.7-73.9); Platelet Count 132 T/CUMM (130-400); Red Blood Count 3.82 MC/CUMM (3.8-5.5); Red Cell Distribution Width 19.8 % (9.3-17.3); White Blood Count 7.3 T/CUMM (4-12)
[2018-06-30 06:18] LABS: Hemoglobin 9.2 GM/DL (12.0-16.0)
[2018-06-30 06:19] LABS: Hypochromasia 1+; Ovalocytes Slight; Platelet Estimate Adequate
[2018-06-30 06:20] LABS: Microcytosis Slight
[2018-06-30] MEDS: INSULIN LISPRO 100 UNIT/ML SUBCUT SCH ×4 (06:35→18:40)
[2018-06-30] MEDS: INSULIN GLARGINE 100 UNIT/ML SUBCUT SCH ×2 (09:34→22:26)
[2018-06-30] MEDS: predniSONE 10 MG TABLET PO SCH (09:35)
[2018-06-30] MEDS: guaiFENesin/DM ER 600-30 MG TABLET PO SCH ×2 (09:35→22:28)
[2018-06-30] MEDS: FUROSEMIDE 80 MG TABLET PO SCH ×2 (09:35→17:32)
[2018-06-30] MEDS: SULFAMETHOX/TRIMETHOPRIM 800-160 MG TABLET PO SCH (09:35)
[2018-06-30] MEDS: PANTOPRAZOLE 40 MG TABLET PO SCH (09:35)
[2018-06-30] MEDS: glyBURIDE 5 MG TABLET PO SCH ×2 (09:35→17:32)
[2018-06-30] MEDS: traMADol 50 MG TABLET PO SCH ×2 (09:35→22:28)
[2018-06-30] MEDS: ENOXAPARIN 40 MG/0.4 ML SYRINGE SUBCUT SCH (09:35)
[2018-06-30] MEDS: SPIRONOLACTONE 25 MG TABLET PO SCH ×4 (09:36→22:28)
[2018-06-30] MEDS: GABAPENTIN 300 MG CAPSULE PO SCH ×3 (09:36→22:29)
[2018-06-30] MEDS: busPIRone 15 MG TABLET PO SCH ×3 (09:38→22:28)
[2018-06-30] MEDS: POLYETHYLENE GLYCOL POWDER 17 GM PACK PO SCH (11:44)
[2018-06-30] MEDS: SILVER SULFADIAZINE 1% CREAM 25 GM TUBE TOP SCH (11:44)
[2018-06-30] MEDS: NICOTINE 7 MG/24 HR PATCH TRANSDERM SCH (12:23)
[2018-06-30] MEDS: ASPIRIN EC 81 MG TABLET PO SCH (12:23)
[2018-06-30] MEDS: VANCOMYCIN INJ 1,750 MG in SODIUM CHLORIDE 0.9% 500 ML IV SCH (14:26)
[2018-06-30] MEDS: QUEtiapine 100 MG TABLET PO SCH (22:28)
[2018-06-30] MEDS: ROSUVASTATIN 20 MG TABLET PO SCH (22:28)
[2018-07-01] MEDS: INSULIN LISPRO 100 UNIT/ML SUBCUT SCH ×4 (00:35→19:12)
[2018-07-01] MEDS: ALBUTEROL 1.25 MG/3 ML NEB RESP TX SCH ×6 (03:04→23:21)
[2018-07-01 06:01] LABS: Basophils % 0.6 % (0.0-0.8); Eosinophils # 0.1 10*3/uL (0.0-0.87); Eosinophils % 0.9 % (0.00-10.9); Immature Granulocytes % 0.6 %; Immature Granulocytes Absolute 0.04 #; Lymphocytes # 1.2 10*3/uL (1.4-4.0); Lymphocytes % 18.4 % (21.3-54.2); Mean Corpuscular HGB Conc 28.5 GM/DL (32-36); Mean Corpuscular Hemoglobin 24 PG (27-34); Mean Corpuscular Volume 83.1 FL (87-102); Mean Platelet Volume 13.5 FL (9.6-12.0); Monocytes # 0.5 10*3/uL (0.11-0.8); Monocytes % 7.6 % (1.7-12.7); Neutrophils # 4.9 10*3/uL (1.4-7.4); Neutrophils % 71.9 % (38.7-73.9); Platelet Count 133 T/CUMM (130-400); Red Blood Count 3.67 MC/CUMM (3.8-5.5); Red Cell Distribution Width 19.9 % (9.3-17.3); White Blood Count 6.8 T/CUMM (4-12)
[2018-07-01 06:12] LABS: Calcium 8.5 MG/DL (8.5-10.1); Osmolality,Calculated 272.2 MOS/KG (273-304); Potassium 4.2 MMOL/L (3.5-5.1)
[2018-07-01 06:28] LABS: Hematocrit 30.3 VOL% (35.7-47.0); Hemoglobin 8.7 GM/DL (12.0-16.0)
[2018-07-01 06:30] LABS: Hypochromasia 1+; Microcytosis Slight; Ovalocytes Slight; Platelet Estimate Normal
[2018-07-01] MEDS: LEVOTHYROXINE 100 MCG TABLET PO SCH (06:34)
[2018-07-01] MEDS: PANTOPRAZOLE 40 MG TABLET PO SCH (09:26)
[2018-07-01] MEDS: FUROSEMIDE 80 MG TABLET PO SCH ×2 (09:27→15:11)
[2018-07-01] MEDS: traMADol 50 MG TABLET PO SCH ×2 (09:27→21:05)
[2018-07-01] MEDS: GABAPENTIN 300 MG CAPSULE PO SCH ×3 (09:27→21:00)
[2018-07-01] MEDS: glyBURIDE 5 MG TABLET PO SCH ×2 (09:27→16:12)
[2018-07-01] MEDS: guaiFENesin/DM ER 600-30 MG TABLET PO SCH ×2 (09:27→21:00)
[2018-07-01] MEDS: predniSONE 10 MG TABLET PO SCH (09:27)
[2018-07-01] MEDS: ASPIRIN EC 81 MG TABLET PO SCH (09:28)
[2018-07-01] MEDS: SPIRONOLACTONE 25 MG TABLET PO SCH ×4 (09:28→20:59)
[2018-07-01] MEDS: ENOXAPARIN 40 MG/0.4 ML SYRINGE SUBCUT SCH (09:28)
[2018-07-01] MEDS: POLYETHYLENE GLYCOL POWDER 17 GM PACK PO SCH (09:28)
[2018-07-01] MEDS: INSULIN GLARGINE 100 UNIT/ML SUBCUT SCH ×2 (09:30→21:00)
[2018-07-01] MEDS: NICOTINE 7 MG/24 HR PATCH TRANSDERM SCH (09:30)
[2018-07-01] MEDS: busPIRone 15 MG TABLET PO SCH ×3 (09:30→21:00)
[2018-07-01] MEDS: SILVER SULFADIAZINE 1% CREAM 25 GM TUBE TOP SCH (09:30)
[2018-07-01] MEDS: CHLORHEXIDINE 4% SOLN 118 ML BOTTLE TOP SCH ×2 (15:11→21:00)
[2018-07-01] MEDS: oxyCODONE/ACETAMINOPHEN 5-325 MG TABLET PO PRN (16:12)
[2018-07-01] MEDS: CHLORHEXIDINE 0.12% ORAL RINSE 60 ML BOTTLE SWISH/SPIT SCH (21:00)
[2018-07-01] MEDS: ROSUVASTATIN 20 MG TABLET PO SCH (21:00)
[2018-07-01] MEDS: QUEtiapine 100 MG TABLET PO SCH (21:05)
[2018-07-02] MEDS ORDERED: CEFUROXIME INJ 1,500 MG in SODIUM CHLORIDE 0.9% 100 ML IV ONE (00:01)
[2018-07-02] MEDS: INSULIN LISPRO 100 UNIT/ML SUBCUT SCH ×3 (01:16→11:11)
[2018-07-02] MEDS: ALBUTEROL 1.25 MG/3 ML NEB RESP TX SCH ×3 (03:20→11:11)
[2018-07-02 04:44] LABS: Basophils % 0.3 % (0.0-0.8); Eosinophils % 0.5 % (0.00-10.9); Hematocrit 29.1 VOL% (35.7-47.0); Hemoglobin 8.5 GM/DL (12.0-16.0); Immature Granulocytes % 0.8 %; Immature Granulocytes Absolute 0.05 #; Lymphocytes # 1.1 10*3/uL (1.4-4.0); Lymphocytes % 15.9 % (21.3-54.2); Mean Corpuscular HGB Conc 29.2 GM/DL (32-36); Mean Corpuscular Hemoglobin 24 PG (27-34); Mean Corpuscular Volume 81.7 FL (87-102); Mean Platelet Volume 12.2 FL (9.6-12.0); Monocytes # 0.5 10*3/uL (0.11-0.8); Monocytes % 6.9 % (1.7-12.7); Neutrophils % 75.6 % (38.7-73.9); Platelet Count 116 T/CUMM (130-400); Red Blood Count 3.56 MC/CUMM (3.8-5.5); Red Cell Distribution Width 19.7 % (9.3-17.3); White Blood Count 6.7 T/CUMM (4-12)
[2018-07-02] MEDS ORDERED: TISSUE ADHESIVE 1 EACH APPLICATOR TOP ONE (04:44)
[2018-07-02] MEDS ORDERED: VANCOMYCIN 1,000 MG VIAL ONE (04:45)
[2018-07-02] MEDS ORDERED: FAMOTIDINE 20 MG TABLET PO ONE (05:00)
[2018-07-02] MEDS ORDERED: DIAZEPAM 5 MG TABLET PO ONE (05:00)
[2018-07-02 05:01] LABS: Calcium 8.6 MG/DL (8.5-10.1); Osmolality,Calculated 278.2 MOS/KG (273-304)
[2018-07-02] MEDS ORDERED: VANCOMYCIN INJ 1,000 MG in SODIUM CHLORIDE 0.9% 250 ML IV ONE (06:00)
[2018-07-02] MEDS ORDERED: PIPERACILLIN/TAZOBACTAM 3,375 MG in SODIUM CHLORIDE 0.9% 100 ML IV ONE (06:00)
[2018-07-02] MEDS ORDERED: CALCIUM CHLORIDE 1,000 MG/10 ML SYRINGE IV ONE (07:33)
[2018-07-02] MEDS ORDERED: PHENYLEPHRINE DRIP 40 MG/250 ML PREMIX IV ONE (07:33)
[2018-07-02] MEDS ORDERED: ALBUMIN 5% 12.5 GM/250 ML VIAL IV ONE ×2 (07:33→10:55)
[2018-07-02] MEDS ORDERED: EPINEPHrine 1 MG/10 ML SYRINGE ONE (07:33)
[2018-07-02] MEDS ORDERED: SODIUM BICARBONATE 50 MEQ/50 ML SYRINGE IV ONE ×2 (07:33→11:44)
[2018-07-02] MEDS ORDERED: ATROPINE 1 MG/10 ML SYRINGE ONE (07:33)
[2018-07-02] MEDS ORDERED: ALBUTEROL 2.5 MG/3 ML NEB RESP TX ONE (08:43)
[2018-07-02 08:49] LABS: ABG Base Excess 2.6 MMOL/L (-2.5-2.5); ABG HCO3 26.7 MMOL/L (20-26); ABG PCO2 45.2 MM HG (35-48); ABG PH 7.396 (7.35-7.45); ABG TCO2 25.7 MMOL/L (23-27); Glucose Heart Surgery 183 MG/DL (74-106); Hematocrit Heart Surgery 26.9 PERCENT (37-47); Hemoglobin Heart Surgery 8.7 G/DL (12.0-16.0); Ionized Calcium Arterial 1.14 MMOL/L (1.21-1.46); PCO2 Patient Temp Arterial 45.2 MMHG; PH Patient Temp Arterial 7.396; Patient Temperature 37 CELCIUS; Potassium Heart/CVR 3.9 MMOL/L (3.5-5.1); Sodium Heart/CVR 134 MMOL/L (135-145)
[2018-07-02 09:13] LABS: Apearance,Urine CLEAR (Clear); Bilirubin,Urine Negative (Negative); Blood, Urine Small mg/dL (Negative); Glucose,Urine (UA) Negative (Negative); Ketones,Urine Negative (Negative); Nitrite,Urine Negative (Negative); Protein,Urine Negative; RBC,Urine 11 /HPF (0-4); Urine Color Yellow (Yellow); Urine Specific Gravity 1.011 (1.001-1.035)
[2018-07-02 09:45] LABS: Hematocrit Heart Surgery 19.4 PERCENT (37-47); PCO2 Patient Temp Venous 52.5 MM HG; PH Patient Temp Venous 7.35; PO2 Patient Temp Venous 57.6 MM HG; VBG Base Excess 3.1 MEQ/L (0-4); VBG HCO3 27.1 MEQ/L (24-28); VBG Oxygen Saturation 86.3 %; VBG PCO2 55.1 MMHG (41-51); VBG PH 7.336; VBG PO2 61.5 MMHG (17-40)
[2018-07-02] MEDS: SODIUM CHLORIDE 0.9% 1,000 ML IV SCH ×2 (09:47→11:35)
[2018-07-02 09:48] LABS: Hemoglobin Heart Surgery 6.2 G/DL (12.0-16.0)
[2018-07-02] MEDS: LEVOTHYROXINE 100 MCG TABLET PO SCH (09:48)
[2018-07-02] MEDS: glyBURIDE 5 MG TABLET PO SCH (09:48)
[2018-07-02] MEDS: ENOXAPARIN 40 MG/0.4 ML SYRINGE SUBCUT SCH (09:49)
[2018-07-02] MEDS: ASPIRIN EC 81 MG TABLET PO SCH (09:49)
[2018-07-02] MEDS: CHLORHEXIDINE 4% SOLN 118 ML BOTTLE TOP SCH (09:49)
[2018-07-02] MEDS: busPIRone 15 MG TABLET PO SCH (09:49)
[2018-07-02] MEDS: INSULIN GLARGINE 100 UNIT/ML SUBCUT SCH (09:49)
[2018-07-02] MEDS: SPIRONOLACTONE 25 MG TABLET PO SCH ×2 (09:49→12:00)
[2018-07-02] MEDS: FUROSEMIDE 80 MG TABLET PO SCH (09:49)
[2018-07-02] MEDS: SILVER SULFADIAZINE 1% CREAM 25 GM TUBE TOP SCH (09:50)
[2018-07-02] MEDS: guaiFENesin/DM ER 600-30 MG TABLET PO SCH (09:50)
[2018-07-02] MEDS: traMADol 50 MG TABLET PO SCH (09:50)
[2018-07-02] MEDS: NICOTINE 7 MG/24 HR PATCH TRANSDERM SCH (09:50)
[2018-07-02] MEDS: POLYETHYLENE GLYCOL POWDER 17 GM PACK PO SCH (09:50)
[2018-07-02] MEDS: predniSONE 10 MG TABLET PO SCH (09:50)
[2018-07-02] MEDS: CHLORHEXIDINE 0.12% ORAL RINSE 60 ML BOTTLE SWISH/SPIT SCH ×2 (09:50→21:33)
[2018-07-02] MEDS: GABAPENTIN 300 MG CAPSULE PO SCH (09:50)
[2018-07-02] MEDS: PANTOPRAZOLE 40 MG TABLET PO SCH (09:50)
[2018-07-02 10:17] LABS: PCO2 Patient Temp Venous 43.4 MM HG; PH Patient Temp Venous 7.393; PO2 Patient Temp Venous 43.2 MM HG; Potassium Heart/CVR 3.9 MMOL/L (3.5-5.1); VBG Base Excess 1.7 MEQ/L (0-4); VBG HCO3 25.8 MEQ/L (24-28); VBG Oxygen Saturation 78.4 %; VBG PCO2 47.8 MMHG (41-51); VBG PH 7.364; VBG PO2 49.5 MMHG (17-40)
[2018-07-02 10:19] LABS: Hemoglobin Heart Surgery 5.5 G/DL (12.0-16.0)
[2018-07-02 10:20] LABS: Hematocrit Heart Surgery 17.3 PERCENT (37-47)
[2018-07-02 10:48] LABS: PH Patient Temp Venous 7.396; PO2 Patient Temp Venous 36.3 MM HG; VBG Base Excess 1.4 MEQ/L (0-4); VBG HCO3 25.5 MEQ/L (24-28); VBG PCO2 50.9 MMHG (41-51); VBG PH 7.339; VBG PO2 47.7 MMHG (17-40)
[2018-07-02 10:50] LABS: Hematocrit Heart Surgery 17.6 PERCENT (37-47); Hemoglobin Heart Surgery 5.6 G/DL (12.0-16.0)
[2018-07-02] MEDS ORDERED: HEPARIN/NACL 0.9% 2 UNITS/ML 500 ML IV ONE (10:51)
[2018-07-02] MEDS ORDERED: PHENYLEPHRINE DRIP 20 MG/250 ML PREMIX IV ONE (10:51)
[2018-07-02] MEDS ORDERED: MIDAZOLAM 10 MG/2 ML VIAL ONE ×2 (10:52→13:32)
[2018-07-02] MEDS ORDERED: CALCIUM CHLORIDE 1,000 MG/10 ML VIAL IV ONE (10:52)
[2018-07-02] MEDS ORDERED: VECURONIUM 10 MG VIAL IV ONE (10:52)
[2018-07-02] MEDS ORDERED: ETOMIDATE 40 MG/20 ML VIAL IV ONE (10:52)
[2018-07-02 10:58] LABS: PCO2 Patient Temp Venous 41.8 MM HG; PH Patient Temp Venous 7.395; PO2 Patient Temp Venous 37.1 MM HG; Potassium Heart/CVR 3.8 MMOL/L (3.5-5.1); VBG Base Excess 1.2 MEQ/L (0-4); VBG HCO3 25.2 MEQ/L (24-28); VBG Oxygen Saturation 75.2 %; VBG PCO2 50.7 MMHG (41-51); VBG PH 7.338; VBG PO2 48.7 MMHG (17-40)
[2018-07-02 10:59] LABS: Hematocrit Heart Surgery 19.4 PERCENT (37-47); Hemoglobin Heart Surgery 6.2 G/DL (12.0-16.0)
[2018-07-02 11:14] LABS: Hematocrit Heart Surgery 20.5 PERCENT (37-47); Hemoglobin Heart Surgery 6.5 G/DL (12.0-16.0); PCO2 Patient Temp Venous 41.2 MM HG; PH Patient Temp Venous 7.401; PO2 Patient Temp Venous 35.3 MM HG; Potassium Heart/CVR 4.8 MMOL/L (3.5-5.1); VBG Oxygen Saturation 65.5 %; VBG PCO2 45.4 MMHG (41-51); VBG PH 7.372; VBG PO2 40.5 MMHG (17-40)
[2018-07-02] MEDS ORDERED: THROMBIN TOPICAL (RECOMBINANT) 5,000 UNIT VIAL TOP ONE (11:34)
[2018-07-02] MEDS ORDERED: MAGNESIUM SULFATE 10 GM/20 ML VIAL IV ONE (11:44)
[2018-07-02] MEDS ORDERED: DEXTROSE 5% KCL 20 MEQ 20 MEQ/1,000 ML BAG IV ONE (11:44)
[2018-07-02] MEDS ORDERED: HEPARIN 10,000 UNIT/10 ML VIAL ONE (11:44)
[2018-07-02] MEDS ORDERED: MANNITOL 100 GM/500 ML BAG IV ONE (11:44)
[2018-07-02] MEDS ORDERED: ALBUMIN 25% 25 GM/100 ML VIAL IV ONE (11:44)
[2018-07-02] MEDS ORDERED: PROTAMINE SULFATE 250 MG/25 ML VIAL IV ONE (11:44)
[2018-07-02] MEDS ORDERED: FUROSEMIDE 20 MG/2 ML VIAL ONE (11:45)
[2018-07-02] MEDS ORDERED: PROTAMINE SULFATE 50 MG/5 ML VIAL IV ONE (11:45)
[2018-07-02] MEDS ORDERED: methylPREDNISolone SOD SUC 1,000 MG/8 ML VIAL ONE (11:45)
[2018-07-02 11:50] LABS: ABG Base Excess -0.9 MMOL/L (-2.5-2.5); ABG HCO3 25.6 MMOL/L (20-26); ABG Oxygen Saturation 99.4 % (95-100); ABG PCO2 52.1 MM HG (35-48); ABG PH 7.309 (7.35-7.45); ABG PO2 401.8 MM HG (80-95); ABG TCO2 27.2 MMOL/L (23-27); Glucose Heart Surgery 267 MG/DL (74-106); Hemoglobin Heart Surgery 8.3 G/DL (12.0-16.0); Ionized Calcium Arterial 1.17 MMOL/L (1.21-1.46); PCO2 Patient Temp Arterial 52.1 MMHG; PH Patient Temp Arterial 7.309; PO2 Patient Temp Arterial 401.8 MM HG; Patient Temperature 37 CELCIUS; Potassium Heart/CVR 4.1 MMOL/L (3.5-5.1); Sodium Heart/CVR 130 MMOL/L (135-145)
[2018-07-02] MEDS ORDERED: NITROPRUSSIDE 50 MG/2 ML VIAL ONE (11:57)
[2018-07-02] MEDS: PHENYLEPHRINE DRIP 40 MG/250 ML PREMIX IV PRN ×3 (12:41→21:48)
[2018-07-02] MEDS: ALBUMIN 5% 12.5 GM in PREMIX 1 EACH IV PRN ×2 (12:50→18:11)
[2018-07-02] MEDS ORDERED: ACETAMINOPHEN 650 MG SUPP RECTAL PRN (13:07)
[2018-07-02] MEDS ORDERED: INSULIN REGULAR 100 UNIT/ML IV PRN (13:07)
[2018-07-02] MEDS ORDERED: CALCIUM CHLORIDE 1,000 MG/10 ML SYRINGE IV PRN (13:07)
[2018-07-02] MEDS ORDERED: MAGNESIUM SULF RIDER 4 GM in PREMIX 1 EACH IV PRN (13:07)
[2018-07-02] MEDS ORDERED: DEXTROSE 50% 25 GM/50 ML SYRINGE IV PRN ×2 (13:07)
[2018-07-02] MEDS ORDERED: ONDANSETRON 4 MG/2 ML VIAL IV PRN (13:07)
[2018-07-02] MEDS ORDERED: SODIUM CHLORIDE 0.9% 250 ML IV PRN (13:07)
[2018-07-02 13:16] LABS: ABG Base Excess -0.4 MMOL/L (-2.5-2.5); ABG HCO3 24.9 MMOL/L (20-26); ABG Oxygen Saturation 95.6 % (95-100); ABG PCO2 44.2 MM HG (35-48); ABG PH 7.369 (7.35-7.45); ABG PO2 92.1 MM HG (80-95); ABG TCO2 26.3 MMOL/L (23-27); Glucose Heart Surgery 254 MG/DL (74-106); Hemoglobin Heart Surgery 7.8 G/DL (12.0-16.0); Potassium Heart/CVR 4.4 MMOL/L (3.5-5.1)
[2018-07-02] MEDS ORDERED: ALBUTEROL 2.5 MG/3 ML NEB RESP TX PRN (13:16)
[2018-07-02 13:18] LABS: Basophils # 0.1 10*3/uL (0.0-0.2); Basophils % 0.3 % (0.0-0.8); Eosinophils % 0.2 % (0.00-10.9); Hematocrit 24.4 VOL% (35.7-47.0); Hemoglobin 7.3 GM/DL (12.0-16.0); Immature Granulocytes % 2.3 %; Immature Granulocytes Absolute 0.39 #; Lymphocytes # 0.6 10*3/uL (1.4-4.0); Lymphocytes % 3.7 % (21.3-54.2); Mean Corpuscular HGB Conc 29.9 GM/DL (32-36); Mean Corpuscular Hemoglobin 25 PG (27-34); Mean Corpuscular Volume 83.3 FL (87-102); Mean Platelet Volume 12.4 FL (9.6-12.0); Monocytes # 0.5 10*3/uL (0.11-0.8); Monocytes % 3.2 % (1.7-12.7); Neutrophils # 15.5 10*3/uL (1.4-7.4); Neutrophils % 90.3 % (38.7-73.9); Platelet Count 131 T/CUMM (130-400); Red Blood Count 2.93 MC/CUMM (3.8-5.5); Red Cell Distribution Width 18.7 % (9.3-17.3); White Blood Count 17.1 T/CUMM (4-12)
[2018-07-02] MEDS: MIDAZOLAM 2 MG/2 ML VIAL IV PRN ×5 (13:30→23:06)
[2018-07-02] MEDS ORDERED: SODIUM CHLORIDE 0.9% 100 ML IV ONE (13:32)
[2018-07-02] MEDS ORDERED: SEVOFLURANE 1 UNIT/15 MINUTE INH ONE (13:32)
[2018-07-02] MEDS ORDERED: SODIUM CHLORIDE 0.9% 1,000 ML IV ONE (13:32)
[2018-07-02] MEDS ORDERED: SODIUM CHLORIDE 0.9% 250 ML IV ONE (13:32)
[2018-07-02] MEDS ORDERED: AMINOCAPROIC ACID 5,000 MG/20 ML VIAL ONE (13:32)
[2018-07-02] MEDS ORDERED: LACTATED RINGERS 1,000 ML IV ONE (13:33)
[2018-07-02] MEDS ORDERED: PROPOFOL 1,000 MG/100 ML BOTTLE IV ONE (13:34)
[2018-07-02 13:35] LABS: Calcium 8.1 MG/DL (8.5-10.1); Osmolality,Calculated 282.2 MOS/KG (273-304); Potassium 4.5 MMOL/L (3.5-5.1)
[2018-07-02 13:36] LABS: INR 1.3; PT Patient Result 14.3 SECS; Partial Thromboplastin Time 27.6 SECS (0-40)
[2018-07-02 13:42] LABS: Band Neutrophils 6 % (0-10); Eosinophils 2 % (0-10); Lymphocytes 2 % (20-55); Platelet Estimate Normal; Segmented Neutrophils 90 % (50-85); Total Cells Counted 100
[2018-07-02 13:43] LABS: Hypochromasia Slight
[2018-07-02] MEDS: SODIUM CHLORIDE 0.45% 1,000 ML IV SCH ×2 (14:14)
[2018-07-02] MEDS: INSULIN REGULAR DRIP 100 ML IV SCH (14:14)
[2018-07-02] MEDS: PROPOFOL 1,000 MG/100 ML BOTTLE IV SCH (14:25)
[2018-07-02] MEDS: ALBUTEROL/IPRATROPIUM 3 ML NEB RESP TX SCH ×3 (15:00→23:20)
[2018-07-02] MEDS: PIPERACILLIN/TAZOBACTAM 3,375 MG in SODIUM CHLORIDE 0.9% 100 ML IV SCH (16:16)
[2018-07-02] MEDS: DEXMEDETOMIDINE 400 MCG in SODIUM CHLORIDE 0.9% 96 ML IV PRN ×2 (16:29→22:14)
[2018-07-02 17:30] LABS: ABG Base Excess -4.2 MMOL/L (-2.5-2.5); ABG HCO3 20.9 MMOL/L (20-26); ABG Oxygen Saturation 98.9 % (95-100); ABG PH 7.367 (7.35-7.45); ABG TCO2 19.5 MMOL/L (23-27); Glucose Heart Surgery 213 MG/DL (74-106); Hematocrit Heart Surgery 22.8 PERCENT (37-47); Hemoglobin Heart Surgery 7.3 G/DL (12.0-16.0); Potassium Heart/CVR 4.6 MMOL/L (3.5-5.1)
[2018-07-02] MEDS ORDERED: DOBUTamine 500 MG/250 ML PREMIX IV PRN (19:03)
[2018-07-02 19:43] LABS: ABG Base Excess -2.8 MMOL/L (-2.5-2.5); ABG HCO3 22.1 MMOL/L (20-26); ABG PCO2 36.5 MM HG (35-48); ABG PH 7.385 (7.35-7.45); Glucose Heart Surgery 158 MG/DL (74-106); Hemoglobin Heart Surgery 9.4 G/DL (12.0-16.0); Potassium Heart/CVR 4.2 MMOL/L (3.5-5.1)
[2018-07-02] MEDS: MORPHINE 10 MG/1 ML VIAL IV PRN ×2 (20:25→22:58)
[2018-07-03] MEDS: PIPERACILLIN/TAZOBACTAM 3,375 MG in SODIUM CHLORIDE 0.9% 100 ML IV SCH ×4 (00:14→23:58)
[2018-07-03] MEDS: INSULIN REGULAR DRIP 100 ML IV SCH ×2 (00:29→14:10)
[2018-07-03] MEDS: MORPHINE 10 MG/1 ML VIAL IV PRN ×4 (01:06→17:21)
[2018-07-03] MEDS: VANCOMYCIN INJ 1,000 MG in SODIUM CHLORIDE 0.9% 250 ML IV SCH ×2 (01:16→14:18)
[2018-07-03] MEDS: ALBUMIN 5% 12.5 GM in PREMIX 1 EACH IV PRN ×2 (01:21→02:13)
[2018-07-03] MEDS: SODIUM CHLORIDE 0.45% 1,000 ML IV SCH ×5 (01:48→09:53)
[2018-07-03 03:32] LABS: Calcium 7.8 MG/DL (8.5-10.1); Osmolality,Calculated 280.8 MOS/KG (273-304); Potassium 4.1 MMOL/L (3.5-5.1)
[2018-07-03 04:04] LABS: Basophils % 0.1 % (0.0-0.8); Immature Granulocytes % 0.8 %; Immature Granulocytes Absolute 0.08 #; Lymphocytes # 0.7 10*3/uL (1.4-4.0); Lymphocytes % 6.7 % (21.3-54.2); Mean Corpuscular HGB Conc 31.5 GM/DL (32-36); Mean Corpuscular Hemoglobin 27 PG (27-34); Mean Platelet Volume 12.2 FL (9.6-12.0); Monocytes # 0.5 10*3/uL (0.11-0.8); Monocytes % 5.2 % (1.7-12.7); Neutrophils # 8.8 10*3/uL (1.4-7.4); Neutrophils % 87.2 % (38.7-73.9); Red Cell Distribution Width 17.9 % (9.3-17.3); White Blood Count 10.1 T/CUMM (4-12)
[2018-07-03 04:06] LABS: Hematocrit 18.1 VOL% (35.7-47.0); Hemoglobin 5.7 GM/DL (12.0-16.0); Platelet Count 92 T/CUMM (130-400); Red Blood Count 2.13 MC/CUMM (3.8-5.5)
[2018-07-03] MEDS ORDERED: CALCIUM GLUCONATE 1,000 MG/10 ML VIAL IV ONE (04:09)
[2018-07-03] MEDS ORDERED: CALCIUM GLUCONATE 1,000 MG in SODIUM CHLORIDE 0.9% 100 ML IV ONE (04:16)
[2018-07-03 04:33] LABS: Hematocrit Heart Surgery 18.9 PERCENT (37-47); PCO2 Patient Temp Venous 40.2 MM HG; PH Patient Temp Venous 7.375; PO2 Patient Temp Venous 48.7 MM HG; Potassium Heart/CVR 4.4 MMOL/L (3.5-5.1); VBG Base Excess -1.5 MEQ/L (0-4); VBG Oxygen Saturation 81.2 %; VBG PCO2 40.2 MMHG (41-51); VBG PH 7.375; VBG PO2 48.7 MMHG (17-40)
[2018-07-03] MEDS ORDERED: FUROSEMIDE 40 MG/4 ML VIAL IV ONE ×2 (04:49→16:29)
[2018-07-03 04:55] LABS: Target Cells Few
[2018-07-03] MEDS: ALBUTEROL/IPRATROPIUM 3 ML NEB RESP TX SCH ×5 (07:02→23:15)
[2018-07-03] MEDS: ENOXAPARIN 40 MG/0.4 ML SYRINGE SUBCUT SCH (09:32)
[2018-07-03] MEDS: ASPIRIN EC 325 MG TABLET PO SCH (09:34)
[2018-07-03] MEDS: FUROSEMIDE 40 MG TABLET PO SCH (09:34)
[2018-07-03] MEDS: PANTOPRAZOLE 40 MG VIAL IV SCH (09:34)
[2018-07-03] MEDS: CHLORHEXIDINE 0.12% ORAL RINSE 60 ML BOTTLE SWISH/SPIT SCH ×2 (09:34→20:40)
[2018-07-03] MEDS: PROPOFOL 1,000 MG/100 ML BOTTLE IV SCH ×5 (12:30→22:15)
[2018-07-03] MEDS ORDERED: GLUCAGON 1 MG VIAL IM PRN (16:30)
[2018-07-03] MEDS: ZINC OXIDE PASTE 113 GM TUBE TOP SCH ×2 (17:18→20:40)
[2018-07-03] MEDS ORDERED: INSULIN REGULAR 100 UNIT/ML SUBCUT SCH (18:00)
[2018-07-03] MEDS: INSULIN REGULAR 100 UNIT/ML SUBCUT SCH ×2 (20:30→23:45)
[2018-07-03] MEDS: ATORVASTATIN 40 MG TABLET PO SCH (20:40)
[2018-07-03] MEDS: CHLORHEXIDINE 4% SOLN 118 ML BOTTLE TOP PRN (21:30)
[2018-07-03] MEDS: SILVER SULFADIAZINE 1% CREAM 25 GM TUBE TOP SCH (21:30)
[2018-07-03] MEDS: SKIN HEALING OINT (AQUAPHOR) 50 GM TUBE TOP PRN (21:30)
[2018-07-03] MEDS: MIDAZOLAM 2 MG/2 ML VIAL IV PRN (22:00)
[2018-07-03] MEDS: MORPHINE 4 MG/1 ML VIAL IV PRN (23:58)
[2018-07-04] MEDS: VANCOMYCIN INJ 1,000 MG in SODIUM CHLORIDE 0.9% 250 ML IV SCH ×2 (00:09→14:28)
[2018-07-04 03:31] LABS: ABG Base Excess -2.2 MMOL/L (-2.5-2.5); ABG HCO3 21.6 MMOL/L (20-26); ABG Oxygen Saturation 98.2 % (95-100); ABG PCO2 32.6 MM HG (35-48); ABG PH 7.439 (7.35-7.45); ABG PO2 136.9 MM HG (80-95); ABG TCO2 22.6 MMOL/L (23-27)
[2018-07-04 03:41] LABS: Hematocrit 24.6 VOL% (35.7-47.0); Immature Granulocytes % 0.8 %; Immature Granulocytes Absolute 0.09 #; Lymphocytes # 1.1 10*3/uL (1.4-4.0); Lymphocytes % 9.2 % (21.3-54.2); Mean Corpuscular HGB Conc 31.3 GM/DL (32-36); Mean Corpuscular Hemoglobin 27 PG (27-34); Mean Corpuscular Volume 85.1 FL (87-102); Mean Platelet Volume 12.8 FL (9.6-12.0); Monocytes # 0.7 10*3/uL (0.11-0.8); Neutrophils # 9.8 10*3/uL (1.4-7.4); Platelet Count 107 T/CUMM (130-400); Red Blood Count 2.89 MC/CUMM (3.8-5.5); Red Cell Distribution Width 19.1 % (9.3-17.3); White Blood Count 11.7 T/CUMM (4-12)
[2018-07-04 03:42] LABS: Hemoglobin 7.7 GM/DL (12.0-16.0)
[2018-07-04 03:59] LABS: Calcium 8.2 MG/DL (8.5-10.1); Osmolality,Calculated 288.8 MOS/KG (273-304); Potassium 4.4 MMOL/L (3.5-5.1)
[2018-07-04] MEDS: INSULIN REGULAR 100 UNIT/ML SUBCUT SCH ×5 (04:39→20:24)
[2018-07-04] MEDS: ENOXAPARIN 40 MG/0.4 ML SYRINGE SUBCUT SCH (06:22)
[2018-07-04] MEDS: ALBUTEROL/IPRATROPIUM 3 ML NEB RESP TX SCH ×4 (06:48→19:00)
[2018-07-04] MEDS: PROPOFOL 1,000 MG/100 ML BOTTLE IV SCH ×2 (07:14→14:50)
[2018-07-04] MEDS ORDERED: HEPARIN/NACL 0.9% 2 UNITS/ML 500 ML IV ONE (07:44)
[2018-07-04 07:46] LABS: ABG Base Excess -1.6 MMOL/L (-2.5-2.5); ABG HCO3 23.1 MMOL/L (20-26); ABG Oxygen Saturation 99.1 % (95-100); ABG PCO2 36.1 MM HG (35-48); ABG PH 7.407 (7.35-7.45); ABG TCO2 21.1 MMOL/L (23-27)
[2018-07-04] MEDS ORDERED: FUROSEMIDE 40 MG/4 ML VIAL IV ONE (07:57)
[2018-07-04] MEDS: MORPHINE 10 MG/1 ML VIAL IV PRN ×3 (09:10→16:05)
[2018-07-04] MEDS: PIPERACILLIN/TAZOBACTAM 3,375 MG in SODIUM CHLORIDE 0.9% 100 ML IV SCH ×3 (09:17→23:50)
[2018-07-04] MEDS: CHLORHEXIDINE 0.12% ORAL RINSE 60 ML BOTTLE SWISH/SPIT SCH ×2 (09:19→20:25)
[2018-07-04] MEDS: PANTOPRAZOLE 40 MG VIAL IV SCH (09:21)
[2018-07-04] MEDS: ZINC OXIDE PASTE 113 GM TUBE TOP SCH ×2 (10:58→20:25)
[2018-07-04] MEDS: FUROSEMIDE 40 MG TABLET PO SCH (11:13)
[2018-07-04] MEDS: ASPIRIN EC 325 MG TABLET PO SCH (11:13)
[2018-07-04] MEDS: SILDENAFIL 20 MG TABLET PO SCH ×3 (12:01→20:16)
[2018-07-04] MEDS: CARVEDILOL 3.125 MG TABLET PO SCH ×2 (12:01→20:16)
[2018-07-04] MEDS: INSULIN REGULAR DRIP 100 ML IV SCH (14:30)
[2018-07-04] MEDS: SODIUM CHLORIDE 0.45% 1,000 ML IV SCH ×3 (14:43→14:44)
[2018-07-04] MEDS: SILVER SULFADIAZINE 1% CREAM 25 GM TUBE TOP SCH (14:45)
[2018-07-04] MEDS: HALOPERIDOL 5 MG/ML AMP IV PRN (20:10)
[2018-07-04] MEDS: MORPHINE 4 MG/1 ML VIAL IV PRN ×2 (20:10→23:50)
[2018-07-04] MEDS: QUEtiapine 100 MG TABLET PO SCH (20:15)
[2018-07-04] MEDS: busPIRone 15 MG TABLET PO SCH (20:15)
[2018-07-04] MEDS: ATORVASTATIN 40 MG TABLET PO SCH (20:16)
[2018-07-04] MEDS: traZODone 50 MG TABLET PO PRN (20:17)
[2018-07-05] MEDS: ALBUTEROL/IPRATROPIUM 3 ML NEB RESP TX SCH ×5 (00:12→19:36)
[2018-07-05] MEDS: INSULIN REGULAR 100 UNIT/ML SUBCUT SCH ×5 (00:14→20:30)
[2018-07-05] MEDS: SILVER SULFADIAZINE 1% CREAM 25 GM TUBE TOP SCH ×2 (03:00→14:18)
[2018-07-05] MEDS: SKIN HEALING OINT (AQUAPHOR) 50 GM TUBE TOP PRN (03:00)
[2018-07-05] MEDS: CHLORHEXIDINE 4% SOLN 118 ML BOTTLE TOP PRN (03:00)
[2018-07-05 04:14] LABS: Basophils % 0.2 % (0.0-0.8); Eosinophils % 0.7 % (0.00-10.9); Hematocrit 23.5 VOL% (35.7-47.0); Hemoglobin 6.9 GM/DL (12.0-16.0); Immature Granulocytes % 0.5 %; Immature Granulocytes Absolute 0.03 #; Lymphocytes # 0.9 10*3/uL (1.4-4.0); Lymphocytes % 15.5 % (21.3-54.2); Mean Corpuscular HGB Conc 29.4 GM/DL (32-36); Mean Corpuscular Hemoglobin 26 PG (27-34); Mean Corpuscular Volume 89.4 FL (87-102); Mean Platelet Volume 12.7 FL (9.6-12.0); Monocytes # 0.4 10*3/uL (0.11-0.8); Neutrophils # 4.7 10*3/uL (1.4-7.4); Neutrophils % 77.1 % (38.7-73.9); Red Blood Count 2.63 MC/CUMM (3.8-5.5); Red Cell Distribution Width 19.3 % (9.3-17.3); White Blood Count 6.1 T/CUMM (4-12)
[2018-07-05 04:18] LABS: Platelet Count 74 T/CUMM (130-400)
[2018-07-05 04:26] LABS: Calcium 8.3 MG/DL (8.5-10.1); Osmolality,Calculated 287.5 MOS/KG (273-304); Potassium 3.8 MMOL/L (3.5-5.1)
[2018-07-05 05:10] LABS: Hypochromasia 1+; Ovalocytes Slight; Platelet Estimate Decreased
[2018-07-05] MEDS: ENOXAPARIN 40 MG/0.4 ML SYRINGE SUBCUT SCH (09:22)
[2018-07-05] MEDS: PIPERACILLIN/TAZOBACTAM 3,375 MG in SODIUM CHLORIDE 0.9% 100 ML IV SCH ×3 (09:22→23:41)
[2018-07-05] MEDS: ASPIRIN EC 325 MG TABLET PO SCH (09:25)
[2018-07-05] MEDS: busPIRone 15 MG TABLET PO SCH ×3 (09:25→20:28)
[2018-07-05] MEDS: FUROSEMIDE 40 MG TABLET PO SCH (09:28)
[2018-07-05] MEDS: PANTOPRAZOLE 40 MG VIAL IV SCH (09:28)
[2018-07-05] MEDS: SILDENAFIL 20 MG TABLET PO SCH ×3 (09:28→20:29)
[2018-07-05] MEDS: CARVEDILOL 3.125 MG TABLET PO SCH ×2 (09:28→20:31)
[2018-07-05] MEDS: CHLORHEXIDINE 0.12% ORAL RINSE 60 ML BOTTLE SWISH/SPIT SCH ×2 (09:31→20:31)
[2018-07-05] MEDS: ZINC OXIDE PASTE 113 GM TUBE TOP SCH ×2 (09:32→20:31)
[2018-07-05] MEDS ORDERED: ALBUMIN 5% 25 GM in PREMIX 1 EACH IV ONE (12:28)
[2018-07-05] MEDS ORDERED: FUROSEMIDE 40 MG/4 ML VIAL IV ONE (12:30)
[2018-07-05] MEDS ORDERED: ALBUMIN 5% 12.5 GM/250 ML VIAL IV ONE (12:36)
[2018-07-05] MEDS: SODIUM CHLORIDE 0.45% 1,000 ML IV SCH (13:33)
[2018-07-05] MEDS: HALOPERIDOL 5 MG/ML AMP IV PRN ×2 (15:07→20:28)
[2018-07-05] MEDS: INSULIN REGULAR DRIP 100 ML IV SCH (15:12)
[2018-07-05 15:52] LABS: Hemoglobin 7.8 GM/DL (12.0-16.0)
[2018-07-05] MEDS ORDERED: ALBUMIN 5% 12.5 GM in PREMIX 1 EACH IV ONE ×2 (19:41→19:43)
[2018-07-05] MEDS: traZODone 50 MG TABLET PO PRN (20:28)
[2018-07-05] MEDS: MORPHINE 4 MG/1 ML VIAL IV PRN (20:28)
[2018-07-05] MEDS: QUEtiapine 100 MG TABLET PO SCH (20:28)
[2018-07-05] MEDS: ATORVASTATIN 40 MG TABLET PO SCH (20:28)
[2018-07-05] MEDS: POTASSIUM CHLORIDE RIDER 20 MEQ in PREMIX 1 EACH IV PRN (21:54)
[2018-07-05] MEDS: MAGNESIUM SULF RIDER 2 GM in PREMIX 1 EACH IV PRN (22:01)
[2018-07-06] MEDS ORDERED: LACTATED RINGERS 1,000 ML IV ONE (00:07)
[2018-07-06] MEDS: INSULIN REGULAR 100 UNIT/ML SUBCUT SCH ×7 (00:09→23:38)
[2018-07-06] MEDS: POTASSIUM CHLORIDE RIDER 10 MEQ in PREMIX 1 EACH IV PRN (00:25)
[2018-07-06] MEDS: SILVER SULFADIAZINE 1% CREAM 25 GM TUBE TOP SCH ×2 (01:32→08:51)
[2018-07-06] MEDS: CHLORHEXIDINE 4% SOLN 118 ML BOTTLE TOP PRN (01:32)
[2018-07-06] MEDS: SKIN HEALING OINT (AQUAPHOR) 50 GM TUBE TOP PRN (01:32)
[2018-07-06] MEDS: MORPHINE 4 MG/1 ML VIAL IV PRN ×3 (03:30→18:43)
[2018-07-06] MEDS: ALBUTEROL/IPRATROPIUM 3 ML NEB RESP TX SCH ×5 (04:13→19:45)
[2018-07-06] MEDS: SODIUM CHLORIDE 0.45% 1,000 ML IV SCH (04:24)
[2018-07-06 04:28] LABS: Basophils % 0.1 % (0.0-0.8); Eosinophils # 0.1 10*3/uL (0.0-0.87); Eosinophils % 1.9 % (0.00-10.9); Hematocrit 28.6 VOL% (35.7-47.0); Hemoglobin 8.7 GM/DL (12.0-16.0); Immature Granulocytes % 0.4 %; Immature Granulocytes Absolute 0.03 #; Lymphocytes # 0.9 10*3/uL (1.4-4.0); Mean Corpuscular HGB Conc 30.4 GM/DL (32-36); Mean Corpuscular Hemoglobin 27 PG (27-34); Mean Corpuscular Volume 88.8 FL (87-102); Mean Platelet Volume 12.8 FL (9.6-12.0); Monocytes # 0.5 10*3/uL (0.11-0.8); Monocytes % 8.1 % (1.7-12.7); Neutrophils # 5.1 10*3/uL (1.4-7.4); Neutrophils % 75.5 % (38.7-73.9); Platelet Count 67 T/CUMM (130-400); Red Blood Count 3.22 MC/CUMM (3.8-5.5); Red Cell Distribution Width 18.6 % (9.3-17.3); White Blood Count 6.7 T/CUMM (4-12)
[2018-07-06 04:40] LABS: Calcium 8.2 MG/DL (8.5-10.1); Osmolality,Calculated 289.1 MOS/KG (273-304)
[2018-07-06] MEDS: PHENYLEPHRINE DRIP 40 MG/250 ML PREMIX IV PRN (06:08)
[2018-07-06] MEDS: ASPIRIN EC 325 MG TABLET PO SCH (08:49)
[2018-07-06] MEDS: SILDENAFIL 20 MG TABLET PO SCH ×3 (08:49→20:37)
[2018-07-06] MEDS: FUROSEMIDE 40 MG TABLET PO SCH (08:49)
[2018-07-06] MEDS: busPIRone 15 MG TABLET PO SCH ×3 (08:49→20:37)
[2018-07-06] MEDS: PANTOPRAZOLE 40 MG VIAL IV SCH (08:50)
[2018-07-06] MEDS: CHLORHEXIDINE 0.12% ORAL RINSE 60 ML BOTTLE SWISH/SPIT SCH ×2 (08:50→20:38)
[2018-07-06] MEDS: ZINC OXIDE PASTE 113 GM TUBE TOP SCH ×2 (08:50→20:38)
[2018-07-06] MEDS: ENOXAPARIN 40 MG/0.4 ML SYRINGE SUBCUT SCH (08:50)
[2018-07-06] MEDS: PIPERACILLIN/TAZOBACTAM 3,375 MG in SODIUM CHLORIDE 0.9% 100 ML IV SCH ×3 (08:51→23:37)
[2018-07-06] MEDS: CARVEDILOL 3.125 MG TABLET PO SCH (08:51)
[2018-07-06] MEDS ORDERED: SODIUM CHLORIDE 0.9% 500 ML IV ONE (09:27)
[2018-07-06] MEDS ORDERED: DOBUTamine 500 MG/250 ML PREMIX IV PRN (10:16)
[2018-07-06] MEDS: VANCOMYCIN INJ 1,750 MG in SODIUM CHLORIDE 0.9% 500 ML IV SCH ×2 (10:22→21:14)
[2018-07-06] MEDS ORDERED: NOREPINEPHRINE 8 MG in SODIUM CHLORIDE 0.9% 242 ML IV PRN (10:34)
[2018-07-06] MEDS ORDERED: NOREPINEPHRINE 4 MG/4 ML VIAL IV ONE (11:17)
[2018-07-06] MEDS: ATORVASTATIN 40 MG TABLET PO SCH (20:37)
[2018-07-06] MEDS: MORPHINE 10 MG/1 ML VIAL IV PRN (22:21)
[2018-07-07] MEDS: ALBUTEROL/IPRATROPIUM 3 ML NEB RESP TX SCH ×5 (00:30→19:02)
[2018-07-07] MEDS: MORPHINE 10 MG/1 ML VIAL IV PRN (03:34)
[2018-07-07] MEDS: INSULIN REGULAR 100 UNIT/ML SUBCUT SCH ×5 (03:34→21:43)
[2018-07-07 03:49] LABS: Basophils % 0.3 % (0.0-0.8); Eosinophils # 0.1 10*3/uL (0.0-0.87); Hematocrit 29.6 VOL% (35.7-47.0); Hemoglobin 8.9 GM/DL (12.0-16.0); Immature Granulocytes % 0.5 %; Immature Granulocytes Absolute 0.03 #; Mean Corpuscular HGB Conc 30.1 GM/DL (32-36); Mean Corpuscular Hemoglobin 27 PG (27-34); Mean Corpuscular Volume 90.2 FL (87-102); Mean Platelet Volume 12.5 FL (9.6-12.0); Monocytes # 0.5 10*3/uL (0.11-0.8); Monocytes % 8.3 % (1.7-12.7); Neutrophils # 4.7 10*3/uL (1.4-7.4); Neutrophils % 73.9 % (38.7-73.9); Red Blood Count 3.28 MC/CUMM (3.8-5.5); Red Cell Distribution Width 18.9 % (9.3-17.3); White Blood Count 6.4 T/CUMM (4-12)
[2018-07-07 03:53] LABS: Platelet Count 79 T/CUMM (130-400)
[2018-07-07 03:59] LABS: Calcium 7.9 MG/DL (8.5-10.1); Osmolality,Calculated 281.5 MOS/KG (273-304); Potassium 3.7 MMOL/L (3.5-5.1)
[2018-07-07 04:17] LABS: Hypochromasia 1+; Platelet Estimate Decreased
[2018-07-07] MEDS: ASPIRIN EC 325 MG TABLET PO SCH (08:10)
[2018-07-07] MEDS: ENOXAPARIN 40 MG/0.4 ML SYRINGE SUBCUT SCH (08:10)
[2018-07-07] MEDS: busPIRone 15 MG TABLET PO SCH ×3 (08:10→21:38)
[2018-07-07] MEDS: FUROSEMIDE 40 MG TABLET PO SCH (08:10)
[2018-07-07] MEDS: SILDENAFIL 20 MG TABLET PO SCH (08:10)
[2018-07-07] MEDS: ZINC OXIDE PASTE 113 GM TUBE TOP SCH (08:11)
[2018-07-07] MEDS: PANTOPRAZOLE 40 MG VIAL IV SCH (08:11)
[2018-07-07] MEDS: PIPERACILLIN/TAZOBACTAM 3,375 MG in SODIUM CHLORIDE 0.9% 100 ML IV SCH (08:13)
[2018-07-07] MEDS: CHLORHEXIDINE 0.12% ORAL RINSE 60 ML BOTTLE SWISH/SPIT SCH ×2 (08:18→22:35)
[2018-07-07] MEDS: POTASSIUM CHLORIDE RIDER 20 MEQ in PREMIX 1 EACH IV PRN (08:51)
[2018-07-07] MEDS: VANCOMYCIN INJ 1,750 MG in SODIUM CHLORIDE 0.9% 500 ML IV SCH (10:02)
[2018-07-07] MEDS: OMEGA 3 ACID ETHYL ESTERS 1 GM CAPSULE PO SCH ×2 (10:13→22:35)
[2018-07-07] MEDS: MAGNESIUM OXIDE 400 MG TABLET PO SCH (10:13)
[2018-07-07] MEDS: SILVER SULFADIAZINE 1% CREAM 25 GM TUBE TOP SCH (10:14)
[2018-07-07] MEDS: POTASSIUM CHLORIDE RIDER 10 MEQ in PREMIX 1 EACH IV PRN (10:57)
[2018-07-07] MEDS: COLLAGENASE OINT 30 GM TUBE TOP SCH (11:20)
[2018-07-07] MEDS: MORPHINE 4 MG/1 ML VIAL IV PRN ×2 (12:46→21:36)
[2018-07-07] MEDS ORDERED: QUEtiapine 100 MG TABLET PO SCH (21:00)
[2018-07-07] MEDS: traZODone 50 MG TABLET PO PRN (21:37)
[2018-07-07] MEDS: ATORVASTATIN 40 MG TABLET PO SCH (21:38)
[2018-07-07] MEDS: QUEtiapine 100 MG TABLET PO SCH (22:35)
[2018-07-08] MEDS: ALBUTEROL/IPRATROPIUM 3 ML NEB RESP TX SCH ×5 (00:37→20:01)
[2018-07-08] MEDS: MORPHINE 4 MG/1 ML VIAL IV PRN ×2 (02:27→13:17)
[2018-07-08] MEDS: INSULIN REGULAR 100 UNIT/ML SUBCUT SCH ×6 (02:30→22:43)
[2018-07-08] MEDS ORDERED: VANCOMYCIN INJ 1,750 MG in SODIUM CHLORIDE 0.9% 500 ML IV SCH (04:00)
[2018-07-08 05:46] LABS: Basophils % 0.2 % (0.0-0.8); Eosinophils # 0.1 10*3/uL (0.0-0.87); Eosinophils % 2.3 % (0.00-10.9); Hematocrit 28.8 VOL% (35.7-47.0); Hemoglobin 8.7 GM/DL (12.0-16.0); Immature Granulocytes % 0.5 %; Immature Granulocytes Absolute 0.03 #; Lymphocytes # 0.9 10*3/uL (1.4-4.0); Lymphocytes % 15.6 % (21.3-54.2); Mean Corpuscular HGB Conc 30.2 GM/DL (32-36); Mean Corpuscular Hemoglobin 28 PG (27-34); Mean Corpuscular Volume 91.7 FL (87-102); Mean Platelet Volume 12.1 FL (9.6-12.0); Monocytes # 0.5 10*3/uL (0.11-0.8); Neutrophils # 4.4 10*3/uL (1.4-7.4); Neutrophils % 73.4 % (38.7-73.9); Platelet Count 87 T/CUMM (130-400); Red Blood Count 3.14 MC/CUMM (3.8-5.5); Red Cell Distribution Width 19.8 % (9.3-17.3)
[2018-07-08] MEDS: ZINC OXIDE PASTE 113 GM TUBE TOP SCH ×3 (05:58→22:45)
[2018-07-08 06:03] LABS: Hypochromasia 1+; Macrocytosis Slight; Platelet Estimate Decreased; Polychromasia Slight
[2018-07-08 06:05] LABS: Calcium 8.3 MG/DL (8.5-10.1); Osmolality,Calculated 277.7 MOS/KG (273-304)
[2018-07-08] MEDS: ENOXAPARIN 40 MG/0.4 ML SYRINGE SUBCUT SCH (10:28)
[2018-07-08] MEDS: busPIRone 15 MG TABLET PO SCH ×3 (10:35→22:45)
[2018-07-08] MEDS: ASPIRIN EC 325 MG TABLET PO SCH (10:35)
[2018-07-08] MEDS: CHLORHEXIDINE 0.12% ORAL RINSE 60 ML BOTTLE SWISH/SPIT SCH (10:36)
[2018-07-08] MEDS: FUROSEMIDE 40 MG TABLET PO SCH (10:36)
[2018-07-08] MEDS: OMEGA 3 ACID ETHYL ESTERS 1 GM CAPSULE PO SCH ×2 (10:36→22:44)
[2018-07-08] MEDS: PANTOPRAZOLE 20 MG TABLET PO SCH (10:37)
[2018-07-08] MEDS: MAGNESIUM OXIDE 400 MG TABLET PO SCH (10:39)
[2018-07-08] MEDS: SILVER SULFADIAZINE 1% CREAM 25 GM TUBE TOP SCH (17:48)
[2018-07-08] MEDS: COLLAGENASE OINT 30 GM TUBE TOP SCH (17:48)
[2018-07-08] MEDS: QUEtiapine 100 MG TABLET PO SCH (22:44)
[2018-07-08] MEDS: traZODone 50 MG TABLET PO PRN (22:44)
[2018-07-09] MEDS: ATORVASTATIN 40 MG TABLET PO SCH ×2 (00:09→21:07)
[2018-07-09] MEDS: CHLORHEXIDINE 0.12% ORAL RINSE 60 ML BOTTLE SWISH/SPIT SCH ×3 (00:13→21:05)
[2018-07-09] MEDS: VANCOMYCIN INJ 2,000 MG in SODIUM CHLORIDE 0.9% 500 ML IV SCH (04:30)
[2018-07-09] MEDS: INSULIN REGULAR 100 UNIT/ML SUBCUT SCH ×6 (05:19→21:07)
[2018-07-09 05:20] LABS: Basophils % 0.3 % (0.0-0.8); Eosinophils # 0.2 10*3/uL (0.0-0.87); Eosinophils % 2.9 % (0.00-10.9); Hematocrit 24.8 VOL% (35.7-47.0); Hemoglobin 7.6 GM/DL (12.0-16.0); Immature Granulocytes % 0.6 %; Immature Granulocytes Absolute 0.04 #; Lymphocytes % 16.7 % (21.3-54.2); Mean Corpuscular HGB Conc 30.6 GM/DL (32-36); Mean Corpuscular Hemoglobin 29 PG (27-34); Mean Corpuscular Volume 93.2 FL (87-102); Mean Platelet Volume 12.2 FL (9.6-12.0); Monocytes # 0.5 10*3/uL (0.11-0.8); Monocytes % 8.7 % (1.7-12.7); Neutrophils # 4.4 10*3/uL (1.4-7.4); Neutrophils % 70.8 % (38.7-73.9); Red Blood Count 2.66 MC/CUMM (3.8-5.5); Red Cell Distribution Width 20.2 % (9.3-17.3); White Blood Count 6.2 T/CUMM (4-12)
[2018-07-09 05:22] LABS: Platelet Count 95 T/CUMM (130-400)
[2018-07-09 05:44] LABS: Hypochromasia 1+; Microcytosis 1+; Ovalocytes Slight
[2018-07-09 05:45] LABS: Anisocytosis 1+; Platelet Estimate Decreased
[2018-07-09 05:50] LABS: Calcium 8.3 MG/DL (8.5-10.1); Osmolality,Calculated 280.4 MOS/KG (273-304)
[2018-07-09] MEDS: ALBUTEROL/IPRATROPIUM 3 ML NEB RESP TX SCH ×5 (05:57→20:17)
[2018-07-09] MEDS: MORPHINE 10 MG/1 ML VIAL IV PRN (06:53)
[2018-07-09] MEDS: ENOXAPARIN 40 MG/0.4 ML SYRINGE SUBCUT SCH (09:50)
[2018-07-09] MEDS: ASPIRIN EC 325 MG TABLET PO SCH (09:52)
[2018-07-09] MEDS: busPIRone 15 MG TABLET PO SCH ×3 (09:52→21:03)
[2018-07-09] MEDS: FUROSEMIDE 40 MG TABLET PO SCH (09:52)
[2018-07-09] MEDS: PANTOPRAZOLE 20 MG TABLET PO SCH (09:53)
[2018-07-09] MEDS: OMEGA 3 ACID ETHYL ESTERS 1 GM CAPSULE PO SCH ×2 (09:53→21:02)
[2018-07-09] MEDS: MAGNESIUM OXIDE 400 MG TABLET PO SCH (09:53)
[2018-07-09] MEDS: ZINC OXIDE PASTE 113 GM TUBE TOP SCH ×2 (15:34→21:03)
[2018-07-09] MEDS: COLLAGENASE OINT 30 GM TUBE TOP SCH (15:35)
[2018-07-09] MEDS: SILVER SULFADIAZINE 1% CREAM 25 GM TUBE TOP SCH (15:35)
[2018-07-09] MEDS: SULFAMETHOX/TRIMETHOPRIM 800-160 MG TABLET PO SCH (21:03)
[2018-07-09] MEDS: traZODone 50 MG TABLET PO PRN (21:03)
[2018-07-09] MEDS: QUEtiapine 100 MG TABLET PO SCH (21:07)
[2018-07-10] MEDS: ALBUTEROL/IPRATROPIUM 3 ML NEB RESP TX SCH ×5 (00:02→19:21)
[2018-07-10] MEDS: INSULIN REGULAR 100 UNIT/ML SUBCUT SCH ×6 (01:51→20:32)
[2018-07-10 05:02] LABS: Basophils % 0.4 % (0.0-0.8); Eosinophils # 0.2 10*3/uL (0.0-0.87); Hematocrit 27.9 VOL% (35.7-47.0); Hemoglobin 8.5 GM/DL (12.0-16.0); Immature Granulocytes % 0.6 %; Immature Granulocytes Absolute 0.03 #; Lymphocytes # 0.8 10*3/uL (1.4-4.0); Lymphocytes % 16.7 % (21.3-54.2); Mean Corpuscular HGB Conc 30.5 GM/DL (32-36); Mean Corpuscular Hemoglobin 28 PG (27-34); Mean Corpuscular Volume 93.3 FL (87-102); Monocytes # 0.4 10*3/uL (0.11-0.8); Monocytes % 8.9 % (1.7-12.7); Neutrophils # 3.5 10*3/uL (1.4-7.4); Neutrophils % 70.4 % (38.7-73.9); Platelet Count 82 T/CUMM (130-400); Red Blood Count 2.99 MC/CUMM (3.8-5.5); Red Cell Distribution Width 20.2 % (9.3-17.3); White Blood Count 4.9 T/CUMM (4-12)
[2018-07-10 05:14] LABS: Calcium 8.4 MG/DL (8.5-10.1); Osmolality,Calculated 276.7 MOS/KG (273-304)
[2018-07-10] MEDS: VANCOMYCIN INJ 2,000 MG in SODIUM CHLORIDE 0.9% 500 ML IV SCH (05:30)
[2018-07-10 05:48] LABS: Anisocytosis 1+; Hypochromasia 1+; Microcytosis 1+; Ovalocytes Slight; Platelet Estimate Decreased
[2018-07-10] MEDS: FUROSEMIDE 40 MG TABLET PO SCH (09:15)
[2018-07-10] MEDS: OMEGA 3 ACID ETHYL ESTERS 1 GM CAPSULE PO SCH ×2 (09:15→20:30)
[2018-07-10] MEDS: MAGNESIUM OXIDE 400 MG TABLET PO SCH (09:15)
[2018-07-10] MEDS: busPIRone 15 MG TABLET PO SCH ×3 (09:15→20:30)
[2018-07-10] MEDS: PANTOPRAZOLE 20 MG TABLET PO SCH (09:15)
[2018-07-10] MEDS: ASPIRIN CHEW 81 MG TABLET PO SCH (09:15)
[2018-07-10] MEDS: SULFAMETHOX/TRIMETHOPRIM 800-160 MG TABLET PO SCH ×2 (09:15→22:30)
[2018-07-10] MEDS: ENOXAPARIN 40 MG/0.4 ML SYRINGE SUBCUT SCH ×2 (09:16→09:22)
[2018-07-10] MEDS: MAGNESIUM SULF RIDER 2 GM in PREMIX 1 EACH IV PRN (09:16)
[2018-07-10] MEDS: COLLAGENASE OINT 30 GM TUBE TOP SCH (09:50)
[2018-07-10] MEDS: SILVER SULFADIAZINE 1% CREAM 25 GM TUBE TOP SCH (09:50)
[2018-07-10] MEDS: ZINC OXIDE PASTE 113 GM TUBE TOP SCH ×2 (10:00→20:30)
[2018-07-10] MEDS: CHLORHEXIDINE 0.12% ORAL RINSE 60 ML BOTTLE SWISH/SPIT SCH ×2 (10:00→20:30)
[2018-07-10] MEDS ORDERED: VANCOMYCIN INJ 500 MG in SODIUM CHLORIDE 0.9% 100 ML IV ONE (12:30)
[2018-07-10] MEDS: QUEtiapine 100 MG TABLET PO SCH (20:30)
[2018-07-10] MEDS: ATORVASTATIN 40 MG TABLET PO SCH (20:31)
[2018-07-11] MEDS: traZODone 50 MG TABLET PO PRN (00:10)
[2018-07-11] MEDS: ALBUTEROL/IPRATROPIUM 3 ML NEB RESP TX SCH ×2 (00:23→07:30)
[2018-07-11] MEDS: INSULIN REGULAR 100 UNIT/ML SUBCUT SCH ×3 (01:11→08:42)
[2018-07-11] MEDS: VANCOMYCIN INJ 2,000 MG in SODIUM CHLORIDE 0.9% 500 ML IV SCH (05:08)
[2018-07-11 05:29] LABS: Calcium 8.5 MG/DL (8.5-10.1); Osmolality,Calculated 275.7 MOS/KG (273-304); Potassium 4.1 MMOL/L (3.5-5.1)
[2018-07-11 07:20] LABS: Basophils % 0.2 % (0.0-0.8); Eosinophils # 0.2 10*3/uL (0.0-0.87); Eosinophils % 3.3 % (0.00-10.9); Hematocrit 30.4 VOL% (35.7-47.0); Hemoglobin 9.3 GM/DL (12.0-16.0); Immature Granulocytes % 0.4 %; Immature Granulocytes Absolute 0.02 #; Lymphocytes # 0.7 10*3/uL (1.4-4.0); Lymphocytes % 14.7 % (21.3-54.2); Mean Corpuscular HGB Conc 30.6 GM/DL (32-36); Mean Corpuscular Hemoglobin 28 PG (27-34); Mean Corpuscular Volume 92.7 FL (87-102); Mean Platelet Volume 12.4 FL (9.6-12.0); Monocytes # 0.4 10*3/uL (0.11-0.8); Monocytes % 7.9 % (1.7-12.7); Neutrophils # 3.6 10*3/uL (1.4-7.4); Neutrophils % 73.5 % (38.7-73.9); Platelet Count 93 T/CUMM (130-400); Red Blood Count 3.28 MC/CUMM (3.8-5.5); Red Cell Distribution Width 20.5 % (9.3-17.3); White Blood Count 4.8 T/CUMM (4-12)
[2018-07-11] MEDS: ENOXAPARIN 40 MG/0.4 ML SYRINGE SUBCUT SCH (07:48)
[2018-07-11] MEDS ORDERED: VANCOMYCIN INJ 2,500 MG in SODIUM CHLORIDE 0.9% 500 ML IV SCH (08:00)
[2018-07-11 08:07] VITALS: BP 106/59
[2018-07-11] MEDS: ASPIRIN CHEW 81 MG TABLET PO SCH (08:41)
[2018-07-11] MEDS: OMEGA 3 ACID ETHYL ESTERS 1 GM CAPSULE PO SCH (08:41)
[2018-07-11] MEDS: SULFAMETHOX/TRIMETHOPRIM 800-160 MG TABLET PO SCH (08:41)
[2018-07-11] MEDS: MAGNESIUM OXIDE 400 MG TABLET PO SCH (08:41)
[2018-07-11] MEDS: FUROSEMIDE 40 MG TABLET PO SCH (08:41)
[2018-07-11] MEDS: PANTOPRAZOLE 20 MG TABLET PO SCH (08:41)
[2018-07-11] MEDS: busPIRone 15 MG TABLET PO SCH (08:41)
[2018-07-11] MEDS: COLLAGENASE OINT 30 GM TUBE TOP SCH (08:42)
[2018-07-11] MEDS: CHLORHEXIDINE 0.12% ORAL RINSE 60 ML BOTTLE SWISH/SPIT SCH (08:42)
[2018-07-11] MEDS: SILVER SULFADIAZINE 1% CREAM 25 GM TUBE TOP SCH (08:42)
[2018-07-11] MEDS: ZINC OXIDE PASTE 113 GM TUBE TOP SCH (08:45)
== END 2018-07-11 10:13 | DRG 162 ==
LOC: N.TELEN 20:20 → SUATTDRO 20:20 → N.CVR 07-02 12:30 → N.ICU 07-03 17:48 → N.TELES 07-07 16:16
PROVIDERS: ADMIT Internal Medicine; ATTEND Family Medicine

== ENCOUNTER 2019-01-25 10:52 | Inpatient (IN) ==
[2019-01-25] MEDS ORDERED: SODIUM CHLORIDE 0.9% 1,000 ML IV STA (11:34)
[2019-01-25 12:12] LABS: Apearance,Urine CLEAR (Clear); Bacteria,Urine Occasional /HPF (Few); Bilirubin,Urine Negative (Negative); Blood, Urine Negative (Negative); Glucose,Urine (UA) >=500 mg/dL (Negative); Ketones,Urine 5 mg/dL (Negative); Nitrite,Urine Negative (Negative); Protein,Urine 30 MG/DL; RBC,Urine 6 /HPF (0-4); Squamous Epithelial Cell,Urine Occasional /HPF (0-10); Urine Color Straw (Yellow); Urine Specific Gravity 1.023 (1.001-1.035); Urine Urobilinogen < 2.0 EU/DL (0.2-1.0); WBC,Urine 2 /HPF (0-6)
[2019-01-25 12:27] LABS: Barbiturates Screen,Urine Negative (Negative); Benzodiazepines Screen,Urine Negative (Negative); Cannabinoid Screen,Urine Negative (Negative); Opiate Screen,Urine Negative (Negative); Phencyclidine Screen,Urine Negative (Negative)
[2019-01-25 13:06] LABS: Basophils % 0.4 % (0.0-0.8); Eosinophils # 0.1 10*3/uL (0.0-0.87); Eosinophils % 1.4 % (0.00-10.9); Hematocrit 33.9 VOL% (35.7-47.0); Hemoglobin 11.2 GM/DL (12.0-16.0); Immature Granulocytes % 1.2 %; Immature Granulocytes Absolute 0.06 #; Lymphocytes % 20.3 % (21.3-54.2); Mean Corpuscular Volume 92.4 FL (87-102); Mean Platelet Volume 11.9 FL (9.6-12.0); Monocytes % 7.2 % (1.7-12.7); Neutrophils % 69.5 % (38.7-73.9); Platelet Count 104 T/CUMM (130-400); Red Blood Count 3.67 MC/CUMM (3.8-5.5); Red Cell Distribution Width 13.6 % (9.3-17.3); White Blood Count 4.9 T/CUMM (4-12)
[2019-01-25 13:21] LABS: Alanine Aminotransferase 28 U/L (13-56); Albumin 3.3 G/DL (3.4-5.0); Alkaline Phosphatase 75 U/L (45-117); Aspartate Amino Transferase 24 U/L (0-37); Bilirubin,Total < 0.39 MG/DL (0.2-1.0); Blood Urea Nitrogen 26 MG/DL (7-18); Calcium 9.1 MG/DL (8.5-10.1); Estimated Glom Filtration Rate 87 ML/MIN; Glucose 443 MG/DL (74-106); Osmolality,Calculated 300.5 MOS/KG (273-304); Total Protein 7.9 G/DL (6.4-8.3)
[2019-01-25] MEDS ORDERED: LACTULOSE 320 GM/480 ML BOTTLE RECTAL ONE (14:58)
[2019-01-25] MEDS ORDERED: NICOTINE 21 MG/24 HR PATCH TRANSDERM PRN (15:20)
[2019-01-25] MEDS ORDERED: ALBUTEROL 2.5 MG/3 ML NEB RESP TX PRN (15:20)
[2019-01-25] MEDS ORDERED: PANTOPRAZOLE 40 MG VIAL IV SCH (15:30)
[2019-01-25] MEDS ORDERED: DEXTROSE 50% 25 GM/50 ML VIAL IV PRN ×2 (16:46→18:32)
[2019-01-25] MEDS ORDERED: GLUCAGON 1 MG VIAL IM PRN (16:46)
[2019-01-25] MEDS ORDERED: NALOXONE 0.4 MG/ML VIAL IV ONE (16:46)
[2019-01-25] MEDS ORDERED: hydrALAZINE 20 MG/1 ML VIAL IV PRN (16:48)
[2019-01-25] MEDS: FUROSEMIDE 40 MG/4 ML VIAL IV SCH (18:19)
[2019-01-25] MEDS: INSULIN REGULAR 100 UNIT/ML SUBCUT SCH ×4 (18:28→21:18)
[2019-01-25] MEDS ORDERED: LACTULOSE 20 GM/30 ML UDCUP PO ONE (18:28)
[2019-01-25] MEDS ORDERED: INSULIN REGULAR 100 UNIT/ML SUBCUT SCH (21:00)
[2019-01-25] MEDS: HEPARIN 5,000 UNIT/1 ML VIAL SUBCUT SCH (21:17)
[2019-01-26] MEDS: HEPARIN 5,000 UNIT/1 ML VIAL SUBCUT SCH ×3 (04:12→21:55)
[2019-01-26 06:46] LABS: Albumin 3.1 G/DL (3.4-5.0); Bilirubin,Total 0.4 MG/DL (0.2-1.0); Calcium 8.6 MG/DL (8.5-10.1); Risk Ratio 4.21; Thyroid Stimulating Hormone 2.36 uIU/ml (0.358-3.74); Total Protein 7.2 G/DL (6.4-8.3); VLDL CHOLESTEROL 133.8 MG/DL
[2019-01-26] MEDS ORDERED: traMADol 50 MG TABLET PO PRN (07:34)
[2019-01-26 07:39] LABS: Basophils % 0.3 % (0.0-0.8); Eosinophils # 0.1 10*3/uL (0.0-0.87); Eosinophils % 1.3 % (0.00-10.9); Hematocrit 34.5 VOL% (35.7-47.0); Hemoglobin 11.4 GM/DL (12.0-16.0); Immature Granulocytes Absolute 0.06 #; Lymphocytes # 1.5 10*3/uL (1.4-4.0); Lymphocytes % 24.6 % (21.3-54.2); Mean Platelet Volume 11.2 FL (9.6-12.0); Monocytes % 5.5 % (1.7-12.7); Neutrophils % 67.3 % (38.7-73.9); Platelet Count 117 T/CUMM (130-400); Red Blood Count 3.71 MC/CUMM (3.8-5.5); Red Cell Distribution Width 13.8 % (9.3-17.3); White Blood Count 6.1 T/CUMM (4-12)
[2019-01-26] MEDS ORDERED: LEVOTHYROXINE 112 MCG TABLET PO SCH (09:00)
[2019-01-26] MEDS ORDERED: OMEGA 3 ACID ETHYL ESTERS 1 GM CAPSULE PO SCH (09:00)
[2019-01-26] MEDS: INSULIN REGULAR 100 UNIT/ML SUBCUT SCH ×4 (09:12→22:04)
[2019-01-26] MEDS: FUROSEMIDE 40 MG/4 ML VIAL IV SCH ×2 (09:13→15:01)
[2019-01-26] MEDS: CITALOPRAM 20 MG TABLET PO SCH (09:15)
[2019-01-26] MEDS: busPIRone 15 MG TABLET PO SCH ×2 (09:16→21:55)
[2019-01-26] MEDS: metFORMIN 500 MG TABLET PO SCH ×2 (09:16→21:55)
[2019-01-26] MEDS: ASCORBIC ACID 500 MG TABLET PO SCH (09:17)
[2019-01-26] MEDS: FEXOFENADINE 180 MG TABLET PO SCH (09:17)
[2019-01-26] MEDS: PANTOPRAZOLE 40 MG TABLET PO SCH (09:17)
[2019-01-26] MEDS: MAGNESIUM OXIDE 400 MG TABLET PO SCH (09:17)
[2019-01-26] MEDS: GABAPENTIN 300 MG CAPSULE PO SCH ×3 (09:18→21:59)
[2019-01-26] MEDS: ASPIRIN CHEW 81 MG TABLET PO SCH (09:18)
[2019-01-26] MEDS: MULTIVITAMIN (CENTRUM) TABLET PO SCH (09:18)
[2019-01-26] MEDS: CLINDAMYCIN 300 MG CAPSULE PO SCH ×2 (15:00→21:55)
[2019-01-26] MEDS: CIPROFLOXACIN 0.3% OPH SOLN 2.5 ML BOTTLE RIGHT EYE SCH ×3 (15:40→22:14)
[2019-01-26] MEDS: DESITIN 4OZ/NYSTATIN 15 GRAM MIXTURE PASTE TOP SCH ×2 (16:36→22:12)
[2019-01-26] MEDS ORDERED: ATORVASTATIN 40 MG TABLET PO SCH (21:00)
[2019-01-26] MEDS ORDERED: INSULIN GLARGINE 100 UNIT/ML SUBCUT SCH (21:00)
[2019-01-26] MEDS: ATORVASTATIN 40 MG TABLET PO SCH (21:56)
[2019-01-27] MEDS: ONDANSETRON 4 MG/2 ML VIAL IV PRN ×4 (00:42→23:42)
[2019-01-27] MEDS: CIPROFLOXACIN 0.3% OPH SOLN 2.5 ML BOTTLE RIGHT EYE SCH ×6 (03:49→23:53)
[2019-01-27 04:40] LABS: Basophils % 0.6 % (0.0-0.8); Eosinophils # 0.1 10*3/uL (0.0-0.87); Eosinophils % 1.2 % (0.00-10.9); Hematocrit 39.1 VOL% (35.7-47.0); Hemoglobin 12.5 GM/DL (12.0-16.0); Immature Granulocytes % 0.8 %; Immature Granulocytes Absolute 0.05 #; Lymphocytes % 30.6 % (21.3-54.2); Mean Corpuscular Volume 94.2 FL (87-102); Mean Platelet Volume 11.5 FL (9.6-12.0); Monocytes % 6.7 % (1.7-12.7); Neutrophils % 60.1 % (38.7-73.9); Platelet Count 134 T/CUMM (130-400); Red Blood Count 4.15 MC/CUMM (3.8-5.5); White Blood Count 6.4 T/CUMM (4-12)
[2019-01-27] MEDS: HEPARIN 5,000 UNIT/1 ML VIAL SUBCUT SCH ×3 (04:41→22:04)
[2019-01-27 05:14] LABS: Alanine Aminotransferase 25 U/L (13-56); Albumin 3.2 G/DL (3.4-5.0); Alkaline Phosphatase 73 U/L (45-117); Aspartate Amino Transferase 29 U/L (0-37); Blood Urea Nitrogen 22 MG/DL (7-18); Calcium 8.7 MG/DL (8.5-10.1); Estimated Glom Filtration Rate 103 ML/MIN; Glucose 229 MG/DL (74-106); Osmolality,Calculated 267.9 MOS/KG (273-304); Total Protein 8.2 G/DL (6.4-8.3)
[2019-01-27] MEDS: CLINDAMYCIN 300 MG CAPSULE PO SCH ×3 (07:02→22:00)
[2019-01-27] MEDS ORDERED: SODIUM BICARBONATE 50 MEQ/50 ML VIAL IV ONE (07:04)
[2019-01-27] MEDS ORDERED: MAGNESIUM SULF RIDER 4 GM in PREMIX 1 EACH IV ONE (07:06)
[2019-01-27] MEDS ORDERED: SODIUM BICARB INJ 50 MEQ in IV BAG 1 EACH IV ONE (07:30)
[2019-01-27] MEDS: OMEGA 3 ACID ETHYL ESTERS 1 GM CAPSULE PO SCH (08:36)
[2019-01-27] MEDS: INSULIN REGULAR 100 UNIT/ML SUBCUT SCH ×4 (08:36→22:02)
[2019-01-27] MEDS: busPIRone 15 MG TABLET PO SCH ×2 (08:37→22:00)
[2019-01-27] MEDS: FEXOFENADINE 180 MG TABLET PO SCH (08:37)
[2019-01-27] MEDS: ASPIRIN CHEW 81 MG TABLET PO SCH (08:37)
[2019-01-27] MEDS: metFORMIN 500 MG TABLET PO SCH ×2 (08:37→22:00)
[2019-01-27] MEDS: MAGNESIUM OXIDE 400 MG TABLET PO SCH (08:37)
[2019-01-27] MEDS: MULTIVITAMIN (CENTRUM) TABLET PO SCH (08:37)
[2019-01-27] MEDS: ASCORBIC ACID 500 MG TABLET PO SCH (08:38)
[2019-01-27] MEDS: DESITIN 4OZ/NYSTATIN 15 GRAM MIXTURE PASTE TOP SCH ×2 (08:38→22:09)
[2019-01-27] MEDS: PANTOPRAZOLE 40 MG TABLET PO SCH (08:38)
[2019-01-27] MEDS: GABAPENTIN 300 MG CAPSULE PO SCH ×3 (08:38→22:00)
[2019-01-27] MEDS: CITALOPRAM 20 MG TABLET PO SCH (08:38)
[2019-01-27] MEDS: FUROSEMIDE 40 MG/4 ML VIAL IV SCH ×2 (08:38→17:04)
[2019-01-27 14:05] LABS: Calcium 9.2 MG/DL (8.5-10.1); Osmolality,Calculated 276.8 MOS/KG (273-304)
[2019-01-27] MEDS ORDERED: INSULIN GLARGINE 100 UNIT/ML SUBCUT SCH (16:26)
[2019-01-27] MEDS: ATORVASTATIN 40 MG TABLET PO SCH (22:00)
[2019-01-28] MEDS: CIPROFLOXACIN 0.3% OPH SOLN 2.5 ML BOTTLE RIGHT EYE SCH ×3 (02:00→13:31)
[2019-01-28 05:36] LABS: Basophils % 0.4 % (0.0-0.8); Eosinophils # 0.1 10*3/uL (0.0-0.87); Eosinophils % 1.2 % (0.00-10.9); Hematocrit 38.7 VOL% (35.7-47.0); Hemoglobin 13.2 GM/DL (12.0-16.0); Immature Granulocytes % 0.8 %; Immature Granulocytes Absolute 0.06 #; Lymphocytes # 1.9 10*3/uL (1.4-4.0); Lymphocytes % 24.5 % (21.3-54.2); Mean Corpuscular HGB Conc 34.1 GM/DL (32-36); Mean Platelet Volume 11.1 FL (9.6-12.0); Monocytes % 5.9 % (1.7-12.7); Neutrophils % 67.2 % (38.7-73.9); Platelet Count 159 T/CUMM (130-400); Red Blood Count 4.35 MC/CUMM (3.8-5.5); Red Cell Distribution Width 14.2 % (9.3-17.3); White Blood Count 7.6 T/CUMM (4-12)
[2019-01-28] MEDS: CLINDAMYCIN 300 MG CAPSULE PO SCH (05:39)
[2019-01-28] MEDS: HEPARIN 5,000 UNIT/1 ML VIAL SUBCUT SCH ×2 (05:39→13:31)
[2019-01-28 06:14] LABS: Albumin 3.5 G/DL (3.4-5.0); Bilirubin,Total 0.7 MG/DL (0.2-1.0); Calcium 9.2 MG/DL (8.5-10.1); Osmolality,Calculated 272.1 MOS/KG (273-304); Total Protein 8.3 G/DL (6.4-8.3)
[2019-01-28] MEDS ORDERED: LEVOTHYROXINE 112 MCG TABLET PO SCH (06:30)
[2019-01-28] MEDS: MAGNESIUM OXIDE 400 MG TABLET PO SCH (08:33)
[2019-01-28] MEDS: busPIRone 15 MG TABLET PO SCH (08:33)
[2019-01-28] MEDS: OMEGA 3 ACID ETHYL ESTERS 1 GM CAPSULE PO SCH (08:33)
[2019-01-28] MEDS: metFORMIN 500 MG TABLET PO SCH (08:33)
[2019-01-28] MEDS: CITALOPRAM 20 MG TABLET PO SCH (08:33)
[2019-01-28] MEDS: GABAPENTIN 300 MG CAPSULE PO SCH (08:33)
[2019-01-28] MEDS: FEXOFENADINE 180 MG TABLET PO SCH (08:34)
[2019-01-28] MEDS: MULTIVITAMIN (CENTRUM) TABLET PO SCH (08:34)
[2019-01-28] MEDS: ASCORBIC ACID 500 MG TABLET PO SCH (08:34)
[2019-01-28] MEDS: PANTOPRAZOLE 40 MG TABLET PO SCH (08:34)
[2019-01-28] MEDS: ASPIRIN CHEW 81 MG TABLET PO SCH (08:34)
[2019-01-28] MEDS: DESITIN 4OZ/NYSTATIN 15 GRAM MIXTURE PASTE TOP SCH (08:34)
[2019-01-28] MEDS: FUROSEMIDE 40 MG/4 ML VIAL IV SCH (08:34)
[2019-01-28] MEDS: INSULIN REGULAR 100 UNIT/ML SUBCUT SCH ×2 (08:39→13:14)
[2019-01-28 12:26] VITALS: BP 159/96
== END 2019-01-28 13:53 | disposition home health service (06) | DRG 813 ==
LOC: EDBD → EDUNIT# → N.ED 10:52 → N.EDINP 15:20 → N.ICU 16:22 → N.5E 01-26 12:19
PROVIDERS: ADMIT Hospitalist; ATTEND Hospitalist

== ENCOUNTER 2019-02-01 01:25 | Inpatient (IN) ==
[2019-02-01] MEDS ORDERED: SODIUM CHLORIDE 0.9% 1,000 ML IV STA (01:59)
[2019-02-01 02:05] LABS: Basophils % 0.3 % (0.0-0.8); Eosinophils # 0.1 10*3/uL (0.0-0.87); Eosinophils % 1.5 % (0.00-10.9); Hematocrit 34.2 VOL% (35.7-47.0); Hemoglobin 11.3 GM/DL (12.0-16.0); Immature Granulocytes % 0.6 %; Immature Granulocytes Absolute 0.04 #; Lymphocytes # 1.2 10*3/uL (1.4-4.0); Lymphocytes % 18.5 % (21.3-54.2); Mean Platelet Volume 11.1 FL (9.6-12.0); Monocytes % 4.6 % (1.7-12.7); Neutrophils % 74.5 % (38.7-73.9); Platelet Count 118 T/CUMM (130-400); Red Blood Count 3.64 MC/CUMM (3.8-5.5); Red Cell Distribution Width 15.1 % (9.3-17.3); White Blood Count 6.5 T/CUMM (4-12)
[2019-02-01 02:09] LABS: PT Patient Result 10.4 SECS (9.6-12.2)
[2019-02-01 02:17] LABS: Alanine Aminotransferase 23 U/L (13-56); Albumin 3.5 G/DL (3.4-5.0); Alkaline Phosphatase 69 U/L (45-117); Aspartate Amino Transferase 17 U/L (0-37); Bilirubin,Total < 0.39 MG/DL (0.2-1.0); Blood Urea Nitrogen 20 MG/DL (7-18); Calcium 8.9 MG/DL (8.5-10.1); Glucose 231 MG/DL (74-106); Osmolality,Calculated 288.4 MOS/KG (273-304); Total Protein 7.5 G/DL (6.4-8.3)
[2019-02-01 02:39] LABS: ABG Base Excess -1.9 MMOL/L (-2.5-2.5); ABG HCO3 22.7 MMOL/L (20-26); ABG Oxygen Saturation 97.3 % (95-100); ABG PCO2 38.2 MM HG (35-48); ABG PH 7.392 (7.35-7.45); ABG PO2 100.6 MM HG (80-95); ABG TCO2 23.9 MMOL/L (23-27); Allen Test Positive; Pt O2 Delivery Device Other
[2019-02-01 02:54] LABS: Apearance,Urine CLEAR (Clear); Bilirubin,Urine Negative (Negative); Blood, Urine Negative (Negative); Glucose,Urine (UA) >=500 mg/dL (Negative); Hyaline Casts,Urine 4 /LPF (0-3); Ketones,Urine Negative (Negative); Mucus,Urine Occasional /LPF (Occasional); Nitrite,Urine Negative (Negative); Protein,Urine 100 MG/DL; RBC,Urine 2 /HPF (0-4); Urine Color Yellow (Yellow); Urine Specific Gravity 1.028 (1.001-1.035); Urine Urobilinogen < 2.0 EU/DL (0.2-1.0); WBC,Urine 1 /HPF (0-6)
[2019-02-01 02:56] LABS: Barbiturates Screen,Urine Negative (Negative); Benzodiazepines Screen,Urine Negative (Negative); Cannabinoid Screen,Urine Negative (Negative); Opiate Screen,Urine Negative (Negative); Phencyclidine Screen,Urine Negative (Negative)
[2019-02-01] MEDS ORDERED: ALBUTEROL 2.5 MG/3 ML NEB RESP TX PRN (04:56)
[2019-02-01] MEDS ORDERED: GLUCAGON 1 MG VIAL IM PRN ×2 (04:56→16:01)
[2019-02-01] MEDS ORDERED: DEXTROSE 50% 25 GM/50 ML VIAL IV PRN ×2 (04:56→16:01)
[2019-02-01] MEDS ORDERED: ONDANSETRON 4 MG/2 ML VIAL IV PRN ×2 (04:56→16:00)
[2019-02-01] MEDS ORDERED: SODIUM CHLORIDE 0.9% 1,000 ML IV SCH (05:00)
[2019-02-01] MEDS ORDERED: LACTULOSE 320 GM/480 ML BOTTLE RECTAL PRN (05:03)
[2019-02-01] MEDS ORDERED: LACTULOSE 320 GM/480 ML BOTTLE RECTAL ONE ×3 (06:00→09:00)
[2019-02-01] MEDS ORDERED: FAMOTIDINE 20 MG/2 ML VIAL IV SCH (09:00)
[2019-02-01 09:08] LABS: Alanine Aminotransferase 25 U/L (13-56); Albumin 3.2 G/DL (3.4-5.0); Alkaline Phosphatase 65 U/L (45-117); Aspartate Amino Transferase 19 U/L (0-37); Bilirubin,Total < 0.39 MG/DL (0.2-1.0); Blood Urea Nitrogen 18 MG/DL (7-18); Calcium 8.9 MG/DL (8.5-10.1); Glucose 180 MG/DL (74-106); Osmolality,Calculated 283.5 MOS/KG (273-304); Total Protein 7.2 G/DL (6.4-8.3)
[2019-02-01] MEDS: INSULIN REGULAR 100 UNIT/ML SUBCUT SCH ×4 (10:02→20:46)
[2019-02-01] MEDS: ENOXAPARIN 40 MG/0.4 ML SYRINGE SUBCUT SCH (10:05)
[2019-02-01] MEDS ORDERED: metFORMIN 500 MG TABLET PO SCH (13:04)
[2019-02-01] MEDS ORDERED: NON-FORMULARY MEDICATION (Albuterol Sulfate [Proair Hfa] 2 PUFF) INH PRN (13:04)
[2019-02-01] MEDS: INSULIN GLARGINE 100 UNIT/ML SUBCUT SCH (15:36)
[2019-02-01] MEDS: GABAPENTIN 300 MG CAPSULE PO SCH ×2 (15:36→20:47)
[2019-02-01] MEDS: CLINDAMYCIN 300 MG CAPSULE PO SCH ×2 (15:36→20:45)
[2019-02-01] MEDS: CITALOPRAM 20 MG TABLET PO SCH (15:36)
[2019-02-01] MEDS: traMADol 50 MG TABLET PO PRN ×2 (15:36→20:47)
[2019-02-01] MEDS: FUROSEMIDE 80 MG TABLET PO SCH (15:36)
[2019-02-01] MEDS: CIPROFLOXACIN 0.3% OPH SOLN 2.5 ML BOTTLE RIGHT EYE SCH ×3 (15:37→21:50)
[2019-02-01] MEDS: busPIRone 15 MG TABLET PO SCH (20:45)
[2019-02-01] MEDS: ATORVASTATIN 40 MG TABLET PO SCH (20:46)
[2019-02-01] MEDS: traZODone 50 MG TABLET PO PRN (20:47)
[2019-02-02] MEDS: CIPROFLOXACIN 0.3% OPH SOLN 2.5 ML BOTTLE RIGHT EYE SCH ×6 (02:30→21:02)
[2019-02-02] MEDS: traMADol 50 MG TABLET PO PRN ×3 (04:41→18:32)
[2019-02-02] MEDS: LEVOTHYROXINE 112 MCG TABLET PO SCH (05:48)
[2019-02-02 08:51] LABS: Basophils % 0.4 % (0.0-0.8); Eosinophils # 0.1 10*3/uL (0.0-0.87); Eosinophils % 2.6 % (0.00-10.9); Hematocrit 35.9 VOL% (35.7-47.0); Hemoglobin 12.1 GM/DL (12.0-16.0); Immature Granulocytes % 0.6 %; Immature Granulocytes Absolute 0.03 #; Lymphocytes # 1.8 10*3/uL (1.4-4.0); Lymphocytes % 33.9 % (21.3-54.2); Mean Corpuscular HGB Conc 33.7 GM/DL (32-36); Mean Corpuscular Volume 93.2 FL (87-102); Mean Platelet Volume 10.5 FL (9.6-12.0); Monocytes % 6.1 % (1.7-12.7); Neutrophils % 56.4 % (38.7-73.9); Platelet Count 134 T/CUMM (130-400); Red Blood Count 3.85 MC/CUMM (3.8-5.5); Red Cell Distribution Width 15.1 % (9.3-17.3); White Blood Count 5.4 T/CUMM (4-12)
[2019-02-02] MEDS: INSULIN REGULAR 100 UNIT/ML SUBCUT SCH ×4 (08:56→21:02)
[2019-02-02] MEDS: INSULIN GLARGINE 100 UNIT/ML SUBCUT SCH (08:58)
[2019-02-02 09:15] LABS: Calcium 8.9 MG/DL (8.5-10.1); Osmolality,Calculated 276.1 MOS/KG (273-304)
[2019-02-02] MEDS: CITALOPRAM 20 MG TABLET PO SCH (09:44)
[2019-02-02] MEDS: busPIRone 15 MG TABLET PO SCH ×2 (09:45→21:01)
[2019-02-02] MEDS: MULTIVITAMIN (CENTRUM) TABLET PO SCH (09:46)
[2019-02-02] MEDS: CLINDAMYCIN 300 MG CAPSULE PO SCH ×3 (09:46→21:02)
[2019-02-02] MEDS: GABAPENTIN 300 MG CAPSULE PO SCH ×3 (09:46→21:01)
[2019-02-02] MEDS: OMEGA 3 ACID ETHYL ESTERS 1 GM CAPSULE PO SCH (09:46)
[2019-02-02] MEDS: PANTOPRAZOLE 40 MG TABLET PO SCH (09:46)
[2019-02-02] MEDS: MAGNESIUM OXIDE 400 MG TABLET PO SCH (09:47)
[2019-02-02] MEDS: ASCORBIC ACID 500 MG TABLET PO SCH (09:47)
[2019-02-02] MEDS: FUROSEMIDE 80 MG TABLET PO SCH ×2 (09:47→17:04)
[2019-02-02] MEDS: ASPIRIN CHEW 81 MG TABLET PO SCH (09:47)
[2019-02-02] MEDS: FEXOFENADINE 180 MG TABLET PO SCH (09:47)
[2019-02-02] MEDS: ENOXAPARIN 40 MG/0.4 ML SYRINGE SUBCUT SCH (09:48)
[2019-02-02] MEDS ORDERED: MAGNESIUM SULF RIDER 2 GM in PREMIX 1 EACH IV PRN (09:55)
[2019-02-02] MEDS ORDERED: MAGNESIUM SULF RIDER 4 GM in PREMIX 1 EACH IV PRN (09:55)
[2019-02-02] MEDS: ACETAMINOPHEN 500 MG TABLET PO PRN ×2 (15:57→23:14)
[2019-02-02] MEDS ORDERED: INSULIN GLARGINE 100 UNIT/ML SUBCUT SCH (16:17)
[2019-02-02] MEDS: traZODone 50 MG TABLET PO PRN (21:01)
[2019-02-02] MEDS: ATORVASTATIN 40 MG TABLET PO SCH (21:02)
[2019-02-03] MEDS: CIPROFLOXACIN 0.3% OPH SOLN 2.5 ML BOTTLE RIGHT EYE SCH ×3 (03:27→10:42)
[2019-02-03] MEDS: LEVOTHYROXINE 112 MCG TABLET PO SCH (06:04)
[2019-02-03 08:17] LABS: Calcium 9.1 MG/DL (8.5-10.1); Osmolality,Calculated 277.5 MOS/KG (273-304)
[2019-02-03] MEDS: busPIRone 15 MG TABLET PO SCH (08:23)
[2019-02-03] MEDS: ASPIRIN CHEW 81 MG TABLET PO SCH (08:23)
[2019-02-03] MEDS: CLINDAMYCIN 300 MG CAPSULE PO SCH (08:24)
[2019-02-03] MEDS: MAGNESIUM OXIDE 400 MG TABLET PO SCH (08:24)
[2019-02-03] MEDS: OMEGA 3 ACID ETHYL ESTERS 1 GM CAPSULE PO SCH (08:24)
[2019-02-03] MEDS: MULTIVITAMIN (CENTRUM) TABLET PO SCH (08:24)
[2019-02-03] MEDS: CITALOPRAM 20 MG TABLET PO SCH (08:24)
[2019-02-03] MEDS: FUROSEMIDE 80 MG TABLET PO SCH (08:24)
[2019-02-03] MEDS: GABAPENTIN 300 MG CAPSULE PO SCH (08:24)
[2019-02-03] MEDS: PANTOPRAZOLE 40 MG TABLET PO SCH (08:24)
[2019-02-03] MEDS: ASCORBIC ACID 500 MG TABLET PO SCH (08:24)
[2019-02-03] MEDS: ENOXAPARIN 40 MG/0.4 ML SYRINGE SUBCUT SCH (08:25)
[2019-02-03] MEDS: INSULIN REGULAR 100 UNIT/ML SUBCUT SCH ×2 (08:25→11:58)
[2019-02-03] MEDS: FEXOFENADINE 180 MG TABLET PO SCH (08:25)
[2019-02-03] MEDS: traMADol 50 MG TABLET PO PRN (08:48)
[2019-02-03 12:14] VITALS: BP 129/93
== END 2019-02-03 12:21 | disposition home health service (06) | DRG 52 ==
LOC: EDUNIT# → EDBD → N.ED 01:25 → N.EDINP 04:56 → SUATTDRO 04:56 → N.CC 05:23 → N.2E 12:43
PROVIDERS: ADMIT Family Medicine; ATTEND Hospitalist